=== PATIENT | male | born 1950 | race Caucasian/White ===

== ENCOUNTER 2016-09-21 11:05 | Emergency (ER) | payer MEDICARE ==
[~2016-09-21] VITALS: Ht 182.9 cm; Wt 92.8 kg
[~2016-09-21 11:05] MED LIST: AMLO5TAB22 PO; COUM6TAB PO; MAXZ25 PO; METH500T3 PO
[2016-09-21 11:16] VITALS: BP 150/91; PULSE 73; RESP 16; TEMP 99.2; O2SAT 96
[2016-09-21] MEDS ORDERED: LISI-519 PO (11:38)
[2016-09-21] MEDS ORDERED: AMLO5TAB2 PO (11:38)
[2016-09-21] MEDS ORDERED: KETOROLAC TROMETHAMINE 60 MG/2 ML (IM) VIAL IM ONE (11:45)
--- NOTE | 2016-09-21 11:50 | PD ---
HPI Chief Complaint: Back/ Neck Pain or Injury Time Seen by Provider: 11:41 Travel History International Travel<30 days: No Contact w/Intl Traveler<30days: No Traveled to known affect area: No History of Present Illness HPI This patient complains of back pain. Located in his right lower back. He's had flares of this in the past. He says he recently started a job and is doing a lot of standing for hours and that is aggravating his back. No injury or fall. Denies fever or neurologic complaint. No incontinence or retention. He said flares like this before. No sciatic radiation. He is to take a lot of medication including morphine but managed to get off all of that stuff in 2010 and does not want any prescriptions. PFSH Past Medical History Diminished Hearing: No Deep Vein Thrombosis: Yes Hypertension: Yes Musculoskeletal: Yes (CHRONIC NECK AND BACK PAIN) Immunizations Current: Yes Past Surgical History Appendectomy: Yes Other Surgery: Yes (NECK SX.) Social History Alcohol Use: Yes (SOC) Tobacco Use: No (NEVER) Substance Use: No Allergies-Medications (Allergen,Severity, Reaction): Coded Allergies: Vicodin (Verified Adverse Reaction, Severe, VOMITING, 09/21/16) Codeine (Verified Adverse Reaction, Unknown, VOMITING, 09/21/16) Reported Meds & Prescriptions Reported Meds & Active Scripts Active Reported Lisinopril 5 Mg Tab Unknown Dose PO DAILY Amlodipine (Amlodipine Besylate) 5 Mg Tab 5 Mg PO DAILY Review of Systems General / Constitutional: No: Fever HENT: No: Headaches Cardiovascular: No: Chest Pain or Discomfort Physical Exam Narrative GASTROINTESTINAL: Abdomen soft, non-tender, nondistended. Positive bowel sounds. No hepato-splenomegaly, or palpable masses. No guarding. NEUROLOGICAL: Awake and alert. Pupils are equal round and reactive. Motor and sensory grossly within normal limits. Five out of 5 muscle strength in all muscle groups. Normal speech. Back: No midline tenderness Data Data Last Documented VS Vital Signs Date Time Temp Pulse Resp B/P Pulse Ox O2 Delivery O2 Flow Rate FiO2 09/21/16 11:16 99.2 73 16 150/91 96 Orders Ketorolac Inj (Toradol Inj) (09/21/16 11:45) [facility] Medical Decision Making Medical Screen Exam Complete: Yes Emergency Medical Condition: Yes Medical Record Reviewed: Yes Differential Diagnosis Back strain, sciatica, pyelonephritis Narrative Course I have reviewed the patient's electronic medical record. Patient is neurologically intact. No red flags to suggest emergent imaging is indicated. He would like Toradol injection but no other medication or prescriptions. Does not want anything addictive. The patient was advised to follow up with their physician and return if they worsen. Diagnosis Primary Impression: Back pain Qualified Code: M54.5 - Acute left-sided low back pain without sciatica Additional Instructions: The patient was advised to follow up with their physician and return if they worsen. Med/Other Pt SpecificInfo: Other Disposition: 01 DISCHARGE HOME Condition: Stable Rene Randolph MD Sep 21, 2016 11:50
== END 2016-09-21 11:57 | disposition home or self-care (01) ==
LOC: PHEFT 11:05
DX: M54.9 Dorsalgia, unspecified (principal)
CPT/HCPCS: 96372; 99283; J1885

== ENCOUNTER 2016-11-17 18:02 | Emergency (ER) | payer MEDICARE ==
[~2016-11-17] VITALS: Ht 182.9 cm; Wt 92.0 kg
[~2016-11-17 18:02] MED LIST changes: +AMLO5TAB2 PO; -AMLO5TAB22 PO; -COUM6TAB PO; +LISI-519 PO; -MAXZ25 PO; -METH500T3 PO
[2016-11-17 18:07] VITALS: BP 168/93; PULSE 57; RESP 16; TEMP 98; O2SAT 96
--- NOTE | 2016-11-17 19:29 | PD ---
HPI Chief Complaint: Musculoskeletal Complaint Time Seen by Provider: 19:29 Travel History International Travel<30 days: No Contact w/Intl Traveler<30days: No Traveled to known affect area: No History of Present Illness HPI 66 year old male presents to the ED for evaluation of 3 day history of left- sided rib pain. Rated 9 out of 10 maximally, Exacerbated by certain movements. Patient states the pain as sharp, momentary, fades to a dull pain. Patient denies known injury to the area, chest pain, palpitations, diaphoresis, shortness of breath, abdominal pain, nausea, vomiting, dysuria, back pain. He endorses drinking 3-4 beers 2-3 times per week. He denies smoking. He denies cardiac history. He does endorse history of MT in his brother. No treatment attempted at home. PFSH Past Medical History Diminished Hearing: No Deep Vein Thrombosis: Yes Hypertension: Yes Musculoskeletal: Yes (CHRONIC NECK AND BACK PAIN) Immunizations Current: Yes Tetanus Vaccination: < 5 Years Influenza Vaccination: Yes Past Surgical History Appendectomy: Yes Other Surgery: Yes (NECK SX.) Social History Alcohol Use: Yes (SOC) Tobacco Use: No (NEVER) Substance Use: No Allergies-Medications (Allergen,Severity, Reaction): Coded Allergies: Vicodin (Verified Adverse Reaction, Severe, VOMITING, 11/17/16) Codeine (Verified Adverse Reaction, Unknown, VOMITING, 11/17/16) Reported Meds & Prescriptions Reported Meds & Active Scripts Active Reported Lisinopril 5 Mg Tab Unknown Dose PO DAILY Amlodipine (Amlodipine Besylate) 5 Mg Tab 5 Mg PO DAILY Review of Systems Except as stated in HPI: all other systems reviewed are Neg Physical Exam Narrative GENERAL: Well-nourished, well-developed nontoxic appearing white male in no acute distress. SKIN: Warm and dry. HEAD: Normocephalic. EYES: No scleral icterus. No injection or drainage. NECK: Supple, trachea midline. No JVD or lymphadenopathy. CARDIOVASCULAR: Regular rate and rhythm without murmurs, gallops, or rubs. 2+ DP and radial pulses bilaterally. PRECORDIUM: There is a faint ecchymosis on the lateral edge of the left anterior rib cage. Pain is reproducible. Point tenderness to palpation. RESPIRATORY: Breath sounds clear and equal bilaterally. No accessory muscle use. GASTROINTESTINAL: Abdomen soft, non-tender, nondistended. Active bowel sounds. MUSCULOSKELETAL: No cyanosis, or edema. BACK: Nontender without obvious deformity. No CVA tenderness. Data Data Last Documented VS Vital Signs Date Time Temp Pulse Resp B/P Pulse Ox O2 Delivery O2 Flow Rate FiO2 11/17/16 18:07 98.0 57 16 168/93 96 Orders Chest, Single Ap (11/17/16 ) Electrocardiogram (11/17/16 19:42) Ketorolac Inj (Toradol Inj) (11/17/16 20:45) MDM Medical Decision Making Medical Screen Exam Complete: Yes Emergency Medical Condition: Yes Differential Diagnosis Musculoskeletal pain versus muscle spasm versus rib fracture versus pneumonia versus pneumothorax versus pancreatitis versus ACS versus other Narrative Course 66 year old male presents to the ED for evaluation of 3 day history of left- sided rib pain. Described as sharp, rated 9/10 maximally, exacerbated by certain movements. Occurs momentarily and fades to a dull pain. Patient denies known injury to the area, chest pain, palpitations, diaphoresis, shortness of breath, abdominal pain, nausea, vomiting, dysuria, back pain. Vitals reviewed. Physical exam reveals a well appearing white male in no acute distress. Physical exam reveals a faint ecchymosis and reproducible TTP of the lateral edge of the LEFT ribcage. EKG rate 55, sinus rhythm. Normal intervals. Normal axis. No ischemic changes. Reviewed by Dr. Reich. Chest x-ray reveals no acute cardio pulmonary disease per radiology read. This is musculoskeletal pain. Patient was administered IM Toradol. He is prescribed a short course of anti-inflammatories and muscle relaxants. Instructed to take the medication as prescribed, avoid driving while taking Flexeril, follow-up with the primary care provider. He indicated understanding of the instructions and is amenable to plan of care. This patient is stable and discharged home. Diagnosis Primary Impression: Rib pain on left side Referrals: Primary Care Physician Patient Instructions: General Instructions, Musculoskeletal Pain (ED) Additional Instructions: Rest, hydrate. Resume normal, gentle activities as tolerated. No strenuous physical activities for the next few days 800mg ibuprofen up to 3 times a day. BEGIN TOMORROW Flexeril up to 3 times a day as needed for muscle spasm. Applying ice or heat to areas with sore muscles may help to improve your pain. Do not apply ice/ heat for longer than 20 m/h. Gentle massage of the area may also help to improve your pain. Follow-up with your primary care provider this week. Return to the ED for any urgent or emergent medical condition. Med/Other Pt SpecificInfo: Prescription(s) given Disposition: 01 DISCHARGE HOME Condition: Stable Olivia Bates Nov 17, 2016 19:29
--- NOTE | 2016-11-17 20:24 | RADHPO ---
EXAM DATE/TIME: 11/17/2016 19:50 [facility] COMPARISON: No previous studies available for comparison. INDICATIONS : left lower chest pain for two days with no known injury MEDICAL HISTORY : None. SURGICAL HISTORY : None. ENCOUNTER: Initial ACUITY: 2 days PAIN SCORE: 10/10 LOCATION: Left lower chest FINDINGS: A single view of the chest demonstrates the lungs to be symmetrically aerated without evidence of mas s, infiltrate or effusion. The cardiomediastinal contours are unremarkable. Osseous structures are intact. CONCLUSION: No acute disease. Kaiser Sanchez MD on November 17, 2016 at 20:23 Board Certified Radiologist. This report was verified electronically.
[2016-11-17] MEDS ORDERED: KETOROLAC TROMETHAMINE 60 MG/2 ML (IM) VIAL IM ONE (20:45)
--- NOTE | 2016-11-18 13:56 | EKG ---
Date Performed: 11/17/2016 Time Performed: 19:56:16 PTAGE: 66 years EKG: Sinus bradycardia. Normal ECG except for rate NO PREVIOUS TRACING DOCTOR: Jarvis Hobson Interpretating Date/Time 11/18/2016 13:52:01
== END 2016-11-17 20:46 | disposition home or self-care (01) ==
LOC: PHED 18:02 → PHEFT 20:46
DX: R07.81 Pleurodynia (principal); I10 Essential (primary) hypertension
CPT/HCPCS: 71010; 93005; 96372; 99283; J1885

== ENCOUNTER 2017-02-09 22:56 | Emergency (ER) | payer MEDICARE, OTHER ==
[~2017-02-09] VITALS: Ht 175.3 cm; Wt 80.0 kg
[2017-02-09 23:25] VITALS: BP 124/67; PULSE 72; RESP 18; TEMP 98.7; O2SAT 97
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
[2017-02-10 00:53] LABS: AUTOMATED NEUTROPHIL # 4.9 TH/MM3 (1.8-7.7); BASOPHIL % 0.4 % (0.0-2.0); EOSINOPHIL % 0.5 % (0.0-4.0); HEMATOCRIT 46.5 % (39.0-51.0); HEMO FLAGS DIFF FINAL; LYMPH % 25.2 % (9.0-44.0); LYMPHOCYTE # 1.8 TH/MM3 (1.0-4.8); MEAN CELL VOLUME 94.1 FL (80.0-100.0); MEAN CORPUSCULAR HEMOGLOBIN 33.1 PG (27.0-34.0); MEAN CORPUSCULAR HGB CONC 35.2 % (32.0-36.0); MONO % 6.8 % (0.0-8.0); NEUT % 67.1 % (16.0-70.0); PLATELET COUNT 161 TH/MM3 (150-450); RED BLOOD COUNT 4.94 MIL/MM3 (4.50-5.90); RED CELL DISTRIBUTION WIDTH 13.5 % (11.6-17.2); WHITE BLOOD COUNT 7.3 TH/MM3 (4.0-11.0)
[2017-02-10 01:10] LABS: AMPHETAMINE, URINE NEG (NEG); BARBITURATES, URINE NEG (NEG); COCAINE, URINE NEG (NEG)
[2017-02-10 01:15] LABS: ACETAMINOPHEN LESS THAN 2.0 MCG/ML (10.0-30.0); ALKALINE PHOSPHATASE 75 U/L (45-117); ALT (GPT) 27 U/L (12-78); TOTAL BILIRUBIN ADULT 0.3 MG/DL (0.2-1.0)
[2017-02-10 01:26] LABS: ANION GAP 9 MEQ/L (5-15); AST (GOT) 26 U/L (15-37); BICARBONATE 28.9 MEQ/L (21.0-32.0); BLOOD UREA NITROGEN 13 MG/DL (7-18); CHLORIDE 104 MEQ/L (98-107); GLOMERULAR FILTRATION RATE 89 ML/MIN (>89); POTASSIUM 3.9 MEQ/L (3.5-5.1); SODIUM (NA) 142 MEQ/L (136-145)
[2017-02-10 09:08] VITALS: BP 160/89; PULSE 67; RESP 16; O2SAT 98
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
== END 2017-02-10 15:18 | disposition home or self-care (01) ==
LOC: NEDAMB 22:56 → NEPJ 02-10 15:18
DX: F10.14 Alcohol abuse with alcohol-induced mood disorder (principal); R45.851 Suicidal ideations; F10.129 Alcohol abuse with intoxication, unspecified; X78.1XXA Intentional self-harm by knife, initial encounter; I10 Essential (primary) hypertension
CPT/HCPCS: 80053; 80307; 85025; 99284

== ENCOUNTER 2017-07-21 17:04 | Emergency (ER) | payer MEDICARE, OTHER ==
[~2017-07-21] VITALS: Ht 182.9 cm; Wt 86.0 kg
[2017-07-21 17:14] VITALS: BP 113/64; PULSE 81; RESP 20; TEMP 100.5; O2SAT 91
[2017-07-21] MEDS ORDERED: SODIUM CHLORIDE 0.9% FLUSH 10 ML FLUSH IVF PRN (17:30)
[2017-07-21] MEDS ORDERED: RESP: ALBUTEROL 2.5 MG/IPRATROPIUM 0.5 MG NEB (SCH) NEB ONE (17:30)
[2017-07-21] MEDS ORDERED: ACETAMINOPHEN 325 MG TAB PO ONE (17:30)
[2017-07-21 17:31] VITALS: RESP 20; O2SAT 95
--- NOTE | 2017-07-21 17:34 | PD ---
HPI Chief Complaint: Cold / Flu Symptoms Time Seen by Provider: 17:23 Travel History International Travel<30 days: No Contact w/Intl Traveler<30days: No Traveled to known affect area: No History of Present Illness HPI This patient complains of cough and congestion and fever. Duration 3 days. Severity is moderate. He has no history of lung disease and never smoked. Denies ill contacts. No alleviating factors. No exacerbating factors. He is not having chest pain. PFSH Past Medical History Diabetes: No Diminished Hearing: No Deep Vein Thrombosis: Yes Hypertension: Yes Musculoskeletal: Yes (CHRONIC NECK AND BACK PAIN) Psychiatric: No (PT DENIES PAST AND CURRENT HISTORY) Immunizations Current: Yes Past Surgical History Appendectomy: Yes Other Surgery: Yes (NECK SX.) Social History Alcohol Use: Yes (Deneis that he drinks every day. ) Tobacco Use: No (NEVER) Substance Use: No (ALCOHOL OCC) Allergies-Medications (Allergen,Severity, Reaction): Coded Allergies: acetaminophen (Unverified Adverse Reaction, Severe, VOMITING, 07/21/17) hydrocodone (Unverified Adverse Reaction, Severe, VOMITING, 07/21/17) codeine (Unverified Adverse Reaction, Unknown, VOMITING, 07/21/17) Reported Meds & Prescriptions Reported Meds & Active Scripts Active Zithromax Z-Josr (Azithromycin) 250 Mg Dspk 250 Mg PO DIRECTED 500 MG (2 tabs) day 1, then 1 tab days 2-5. Ventolin Hfa 18 GM Inh (Albuterol Sulfate) 90 Mcg/Act Aer 1 Puff INH Q4H PRN Reported Lisinopril 5 Mg Tab Unknown Dose PO DAILY Amlodipine (Amlodipine Besylate) 5 Mg Tab 5 Mg PO DAILY Review of Systems General / Constitutional: Positive: Fever Eyes: No: Visual changes HENT: Positive: Congestion, No: Headaches Cardiovascular: No: Chest Pain or Discomfort Respiratory: Positive: Cough, No: Shortness of Breath Gastrointestinal: No: Abdominal Pain Genitourinary: No: Dysuria Musculoskeletal: No: Pain Skin: No Rash Neurologic: No: Weakness Psychiatric: No: Depression Endocrine: No: Polydipsia Hematologic/Lymphatic: No: Easy Bruising Physical Exam Narrative GENERAL: Well-nourished, well-developed patient in no apparent distress. SKIN: Focused skin assessment reveals no rash and nodules. Skin is Warm and dry. HEAD: Atraumatic. Normocephalic. EYES: Pupils equal and round. No scleral icterus. No injection or drainage. ENT: No nasal bleeding or discharge. Mucous membranes pink and moist. Throat clear NECK: Trachea midline. No JVD. No meningeal signs CARDIOVASCULAR: Regular rate and rhythm. No murmur appreciated. RESPIRATORY: No accessory muscle use. Clear to auscultation. Breath sounds equal bilaterally. GASTROINTESTINAL: Abdomen soft, non-tender, nondistended. Hepatic and splenic margins not palpable. MUSCULOSKELETAL: No obvious deformities. No clubbing. No cyanosis. No edema. NEUROLOGICAL: Awake and alert. No obvious cranial nerve deficits. Motor grossly within normal limits. Normal speech. PSYCHIATRIC: Appropriate mood and affect; insight and judgment normal. Data Data Last Documented VS Vital Signs Date Time Temp Pulse Resp B/P (MAP) Pulse Ox O2 Delivery O2 Flow Rate FiO2 07/21/17 18:50 99.3 79 20 91 Nasal Cannula 2.00 07/21/17 17:14 113/64 (80) Orders Orders Complete Blood Count With Diff (07/21/17 17:28) Basic Metabolic Panel (Bmp) (07/21/17 17:28) Influenzae A/B Antigen (07/21/17 17:28) Chest, Single Ap (07/21/17 17:28) Oximetry (07/21/17 17:28) Acetaminophen (Tylenol) (07/21/17 17:30) Sodium Chloride 0.9% Flush (Ns Flush) (07/21/17 17:30) Albuterol-Ipratropium Neb (Duoneb Neb) (07/21/17 17:30) Arterial Blood Gas (Abg) (07/21/17 ) Labs Laboratory Tests Test 07/21/17 17:30 07/21/17 19:00 White Blood Count 12.6 TH/MM3 Red Blood Count 5.63 MIL/MM3 Hemoglobin 17.4 GM/DL Hematocrit 51.6 % Mean Corpuscular Volume 91.7 FL Mean Corpuscular Hemoglobin 31.0 PG Mean Corpuscular Hemoglobin Concent 33.8 % Red Cell Distribution Width 13.0 % Platelet Count 160 TH/MM3 Mean Platelet Volume 8.1 FL Neutrophils (%) (Auto) 84.0 % Lymphocytes (%) (Auto) 6.3 % Monocytes (%) (Auto) 7.0 % Eosinophils (%) (Auto) 0.2 % Basophils (%) (Auto) 2.5 % Neutrophils # (Auto) 10.6 TH/MM3 Lymphocytes # (Auto) 0.8 TH/MM3 Monocytes # (Auto) 0.9 TH/MM3 Eosinophils # (Auto) 0.0 TH/MM3 Basophils # (Auto) 0.3 TH/MM3 CBC Comment DIFF FINAL Differential Comment Blood Urea Nitrogen 22 MG/DL Creatinine 1.10 MG/DL Random Glucose 103 MG/DL Calcium Level 8.9 MG/DL Sodium Level 133 MEQ/L Potassium Level 4.0 MEQ/L Chloride Level 99 MEQ/L Carbon Dioxide Level 26.5 MEQ/L Anion Gap 8 MEQ/L Estimat Glomerular Filtration Rate 67 ML/MIN Blood Gas Puncture Site LT RADIAL Blood Gas Patient Temperature 98.6 Blood Gas HCO3 26 mmol/L Blood Gas Base Excess 2.4 mmol/L Blood Gas Oxygen Saturation 92 % Arterial Blood pH 7.48 Arterial Blood Partial Pressure CO2 35 mmHG Arterial Blood Partial Pressure O2 72 mmHG Arterial Blood Oxygen Content 22.3 Vol % Arterial Blood Carboxyhemoglobin 1.8 % Arterial Blood Methemoglobin 1.1 % Blood Gas Hemoglobin 17.2 G/DL Oxygen Delivery Device ROOM AIR Blood Gas Inspired Oxygen 21 % MDM Medical Decision Making Medical Screen Exam Complete: Yes Emergency Medical Condition: Yes Medical Record Reviewed: Yes Differential Diagnosis Pneumonia, bronchitis, influenza Narrative Course I have reviewed the patient's electronic medical record. Patient's been here before for alcohol intoxication as well as back pain IV placed CBC is normal metabolic profile is normal I reviewed his chest x-ray which is normal Influenza swab is negative I gave him a nebulizer treatment Given Tylenol for fever Presentation is consistent with acute respiratory infection. It may be viral. His chest x-rays negative. Room air ABG shows PO2 of 72 He is not hypoxemic. He feels he can do okay at home. I prescribed him an albuterol inhaler to use as needed as well as a course of Zithromax This may be viral I don't have significant clinical suspicion of PE. He's got a prominent hacking cough and fever suggesting infectious etiology. He does not have chest pain or tachycardia. We discussed hospitalization but he thinks he will do well at home. I advised him to return if he worsens in any way and he agrees. Diagnosis Primary Impression: Bronchopneumonia Additional Instructions: The patient was advised to follow up with their physician and return if they worsen. Med/Other Pt SpecificInfo: Prescription(s) given Scripts Azithromycin (Zithromax Z-Josr) 250 Mg Dspk 250 MG PO DIRECTED for Infection, #1 DSPK 0 Refills 500 MG (2 tabs) day 1, then 1 tab days 2-5. Prov: Rene Randolph MD 07/21/17 Albuterol 18 GM Inh (Ventolin Hfa 18 GM Inh) 90 Mcg/Act Aer 1 PUFF INH Q4H Y for SHORTNESS OF BREATH, #1 INHALER 0 Refills Prov: Rene Randolph MD 07/21/17 Disposition: 01 DISCHARGE HOME Condition: Stable Rene Randolph MD Jul 21, 2017 17:34
[2017-07-21 17:53] LABS: BICARBONATE 26.5 MEQ/L (21.0-32.0)
[2017-07-21 18:09] LABS: AUTOMATED NEUTROPHIL # 10.6 TH/MM3 (1.8-7.7); BASOPHIL # 0.3 TH/MM3 (0-0.2); BASOPHIL % 2.5 % (0.0-2.0); EOSINOPHIL % 0.2 % (0.0-4.0); HEMATOCRIT 51.6 % (39.0-51.0); LYMPH % 6.3 % (9.0-44.0); LYMPHOCYTE # 0.8 TH/MM3 (1.0-4.8); MEAN CELL VOLUME 91.7 FL (80.0-100.0); MEAN CORPUSCULAR HGB CONC 33.8 % (32.0-36.0); PLATELET COUNT 160 TH/MM3 (150-450); RED BLOOD COUNT 5.63 MIL/MM3 (4.50-5.90); WHITE BLOOD COUNT 12.6 TH/MM3 (4.0-11.0)
[2017-07-21 18:35] LABS: HEMO FLAGS DIFF FINAL
--- NOTE | 2017-07-21 18:41 | RADRPT ---
EXAM DATE/TIME: 07/21/2017 17:50 [facility] COMPARISON: CHEST SINGLE AP, November 17, 2016, 19:50. INDICATIONS : Cough, shortness of breath, and congestion. MEDICAL HISTORY : None. SURGICAL HISTORY : None. ENCOUNTER: Initial ACUITY: 1 week PAIN SCORE: 5/10 LOCATION: Bilateral chest FINDINGS: A single view of the chest demonstrates the lungs to be symmetrically aerated without evidence of mas s, infiltrate or effusion. The cardiomediastinal contours are unremarkable. Surgical hardware is see n in the cervical spine. CONCLUSION: No acute disease. Rivas Kennedy MD on July 21, 2017 at 18:40 Board Certified Radiologist. This report was verified electronically.
[2017-07-21 18:50] VITALS: PULSE 79; RESP 20; TEMP 99.3; O2SAT 91
[2017-07-21 19:11] LABS: BLOOD GAS BASE EXCESS 2.4 mmol/L (-2-2); BLOOD GAS CARBOXYHEMOGLOBIN 1.8 % (0-4); BLOOD GAS HCO3 26 mmol/L (22-26); BLOOD GAS METHEMOGLOBIN 1.1 % (0-2); BLOOD GAS O2 HGB SATURATION 92 % (90-100); BLOOD GAS OXYGEN CONTENT 22.3 Vol % (12.0-20.0); BLOOD GAS PCO2 35 mmHG (38-42); BLOOD GAS PO2 72 mmHG (61-120); BLOOD GAS TOTAL HGB 17.2 G/DL (12.0-16.0); CRITICAL VALUE NO; DRAW SITE LT RADIAL; FIO2 21 %; NUMBER OF ARTERIAL PUNCTURES 1; OXYGEN DEVICE ROOM AIR; STAT YES; TEMP CORR TO 98.6; ULNAR PULSE PRESENT
[2017-07-21] MEDS ORDERED: VENTAER INH (19:25)
[2017-07-21] MEDS ORDERED: ZITHTAB PO (19:25)
[2017-07-21 19:44] VITALS: BP 118/68; PULSE 76; RESP 18; O2SAT 96
== END 2017-07-21 19:56 | disposition home or self-care (01) ==
LOC: PHED 17:04
DX: J18.0 Bronchopneumonia, unspecified organism (principal); R50.9 Fever, unspecified; I10 Essential (primary) hypertension; Z86.718 Personal history of other venous thrombosis and embolism; Z87.39 Personal history of other diseases of the musculoskeletal system and connective tissue
CPT/HCPCS: 36600; 71010; 80048; 82805; 85025; 87804; 94664; 99284

== ENCOUNTER 2018-07-31 16:09 | Inpatient (IN) ==
[2018-07-31] MEDS ORDERED: Ketorolac Inj 30 MG/ML (IVP) Vial IV.PUSH ONE (16:32)
--- NOTE | 2018-07-31 16:42 | ED ---
HPI General Chief complaint: Respiratory Symptoms Stated complaint: SOB Time Seen by Provider: 07/31/18 16:16 Source: patient Mode of arrival: ambulatory Limitations: no limitations History of Present Illness HPI narrative: Patient presents with new onset of pain to right posterior thorax that is increasing in severity over the last week. Due to this patient has not been working and has significant pain with deep inspiration or movement. Patient has shortness of breath just because of pain and discomfort impairs proper respiration. Patient takes minimal analgesics and no narcotics. Patient has intermittent pain to his left calf with intermittent spasm in that area. No swelling or edema. No episodes of shortness of breath acute in nature Related Data Home Medications Medication Instructions Recorded Confirmed atenolol 25 mg PO DAILY 04/09/18 07/31/18 lisinopril-hydrochlorothiazide 1 tab PO DAILY 04/09/18 07/31/18 Allergies Allergy/AdvReac Type Severity Reaction Status Date / Time hydrocodone AdvReac Severe VOMITING Verified 07/31/18 16:21 codeine AdvReac Unknown VOMITING Verified 07/31/18 16:21 Review of Systems ROS: all other systems reviewed are negative [facility] Medical History Medical History Cervical vertebral fusion (Acute) Hypertension (Acute) Surgical History Surgical History History of appendectomy (Acute) Social History Social History Substance History: No History of Abuse Second Hand Smoke Exposure: No Smoking Status: Never smoker How Often Do You Have a Drink Containing Alcohol: 2 to 4 times a month Recent Travel in [facility] within the Last 8 Weeks: No Recent Out of Country Travel within the Last 8 Weeks: No Immunization History Tetanus Immunization: Unsure Exam Narrative Exam Narrative: GENERAL: Alert and oriented. Pain right posterior thorax with deep inspiration SKIN: Focused skin assessment warm/dry. HEAD: Atraumatic. Normocephalic. EYES: Pupils equal and round. No scleral icterus. No injection or drainage. ENT: No nasal bleeding or discharge. Mucous membranes pink and moist. NECK: Trachea midline. No JVD. CARDIOVASCULAR: Regular rate and rhythm. No murmur appreciated. RESPIRATORY: No accessory muscle use. Clear to auscultation. Breath sounds equal bilaterally. Chest wall: Patient has well localized tenderness to posterior thorax posterior axillary line at 7 rib area. GASTROINTESTINAL: Abdomen soft, non-tender, nondistended. Hepatic and splenic margins not palpable. MUSCULOSKELETAL: No obvious deformities. No clubbing. No cyanosis. No edema. NEUROLOGICAL: Awake and alert. No obvious cranial nerve deficits. Motor grossly within normal limits. Normal speech. No swelling or edema but tenderness to left calf however no Homans. PSYCHIATRIC: Appropriate mood and affect; insight and judgment normal. Course Reevaluation(s) Reevaluation #1: Patient stable with no increased symptomatology. Patient has reduced pain and discomfort with analgesic. No significant respiratory distress. Patient has normal pulse ox and is stable and is being placed on anticoagulants. Time: 23:40 Initial Documented Vital Signs Temperature 99.9 F H 07/31/18 16:18 Pulse Rate 88 07/31/18 16:18 Respiratory Rate 20 07/31/18 16:18 Blood Pressure 152/70 H 07/31/18 16:18 Pulse Oximetry 98 07/31/18 16:18 Last Documented Vital Signs Temperature 99.9 F H 07/31/18 16:18 Pulse Rate 72 07/31/18 20:25 Respiratory Rate 16 07/31/18 20:25 Blood Pressure 140/66 07/31/18 20:25 Pulse Oximetry 98 07/31/18 20:27 Critical Care Time Critical Care Time: Yes Total Critical Care Time: 70 Attestation: Not applicable Medical Decision Making MDM Narrative Medical decision making narrative: Patient presents with chest wall pain however on further evaluation he was found to have pulmonary embolism with nidus from the left calf. Patient placed on anticoagulants and patient admitted to Dr. Ackerman Medical Screen Exam Complete: Yes Emergency Medical Condition: Yes Lab Data Result diagrams: 07/31/18 17:06 07/31/18 17:06 Lab Results 07/31/18 07/31/18 07/31/18 Range/Units 17:06 17:06 17:06 CBC w Diff Auto diff final WBC 13.6 H (4.0-11.0) th/mm3 RBC 4.91 (4.50-5.90) mil/mm3 Hgb 15.5 (13.0-17.0) gm/dL Hct 46.0 (39.0-51.0) % MCV 93.6 (80.0-100.0) fL MCH 31.6 (27.0-34.0) pg MCHC 33.8 (32.0-36.0) % RDW 12.7 (11.6-17.2) % Plt Count 180 (150-450) th/mm3 MPV 7.4 (7.0-11.0) fL Neut % (Auto) 78.9 H (16.0-70.0) % Lymph % (Auto) 10.0 (9.0-44.0) % Davis % (Auto) 6.7 (0.0-8.0) % Eos % (Auto) 0.2 (0.0-4.0) % Baso % (Auto) 4.2 H (0.0-2.0) % Neut # (Auto) 10.7 H (1.8-7.7) th/mm3 Lymph # (Auto) 1.4 (1.0-4.8) th/mm3 Davis # (Auto) 0.9 (0.0-0.9) th/mm3 Eos # (Auto) 0.0 (0.0-0.4) th/mm3 Baso # (Auto) 0.6 H (0.0-0.2) th/mm3 WBC Differential . Differential Comment . PT (9.8-11.6) sec INR Ratio APTT (23.4-31.7) sec D-Dimer Quant (PE/DVT) 4.91 H (0.00-0.50) mg/L FEU Sodium 135 L (136-145) meq/L Potassium 4.2 (3.5-5.1) meq/L Chloride 99 (98-107) meq/L Carbon Dioxide 28.0 (21.0-32.0) meq/L Anion Gap 8 (5-15) meq/L BUN 10 (7-18) mg/dL Creatinine 0.90 (0.60-1.30) mg/dL Estimated GFR 84 L (>89) mL/min Random Glucose 97 (74-106) mg/dL Calcium 8.6 (8.5-10.1) mg/dL Total Bilirubin 0.9 (0.2-1.0) mg/dL AST 20 (15-37) U/L ALT 22 (12-78) U/L Alkaline Phosphatase 79 (45-117) U/L Troponin I Less than 0.02 L (0.02-0.05) ng/mL Total Protein 7.4 (6.4-8.2) g/dL Albumin 3.6 (3.4-5.0) g/dL 07/31/18 07/31/18 Range/Units 17:06 20:17 CBC w Diff WBC (4.0-11.0) th/mm3 RBC (4.50-5.90) mil/mm3 Hgb (13.0-17.0) gm/dL Hct (39.0-51.0) % MCV (80.0-100.0) fL MCH (27.0-34.0) pg MCHC (32.0-36.0) % RDW (11.6-17.2) % Plt Count (150-450) th/mm3 MPV (7.0-11.0) fL Neut % (Auto) (16.0-70.0) % Lymph % (Auto) (9.0-44.0) % Davis % (Auto) (0.0-8.0) % Eos % (Auto) (0.0-4.0) % Baso % (Auto) (0.0-2.0) % Neut # (Auto) (1.8-7.7) th/mm3 Lymph # (Auto) (1.0-4.8) th/mm3 Davis # (Auto) (0.0-0.9) th/mm3 Eos # (Auto) (0.0-0.4) th/mm3 Baso # (Auto) (0.0-0.2) th/mm3 WBC Differential Differential Comment PT 9.6 L (9.8-11.6) sec INR 0.9 Ratio APTT 27.5 (23.4-31.7) sec D-Dimer Quant (PE/DVT) (0.00-0.50) mg/L FEU Sodium (136-145) meq/L Potassium (3.5-5.1) meq/L Chloride (98-107) meq/L Carbon Dioxide (21.0-32.0) meq/L Anion Gap (5-15) meq/L BUN (7-18) mg/dL Creatinine (0.60-1.30) mg/dL Estimated GFR (>89) mL/min Random Glucose (74-106) mg/dL Calcium (8.5-10.1) mg/dL Total Bilirubin (0.2-1.0) mg/dL AST (15-37) U/L ALT (12-78) U/L Alkaline Phosphatase (45-117) U/L Troponin I Less than 0.02 L (0.02-0.05) ng/mL Total Protein (6.4-8.2) g/dL Albumin (3.4-5.0) g/dL Imaging Data Radiologist's impression: Ribs X-Ray 07/31/18 16:32 CONCLUSION: Negative rib series. No evidence of pneumothorax. Venous Doppler Study 07/31/18 19:56 CONCLUSION: 1. The study is negative for upper extremity deep venous thrombosis. Chest CTA 07/31/18 19:58 CONCLUSION: 1. Bilateral lower lobe pulmonary emboli. Discharge Plan Discharge Disposition Patient Disposition: 30 Still Patient Discharge Condition Condition: Stable Discharge Details Diagnosis: Thrombophlebitis leg, Pulmonary emboli Physicians Team ED Provider: Desmond Carrillo Primary Care Provider: Lisa Rand Rxs /Orders / Referrals /Forms Prescriptions: No Action atenolol 25 mg Tablet 25 mg PO DAILY RF: 0 lisinopril-hydrochlorothiazide 10-12.5 mg Tablet 1 tab PO DAILY RF: 0 Status ED Status: With Doctor
--- NOTE | 2018-07-31 17:07 | XR ---
EXAM DATE: 07/31/2018 4:59 PM EST AGE/SEX: 68 years / Male INDICATIONS: Right posterior chest pain for 1 week, no known trauma. CLINICAL DATA: This is the patient's initial encounter. Patient reports that signs and symptoms have been present for 1 week and indicates a pain score of 8/10. MEDICAL/SURGICAL HISTORY: None. None. COMPARISON: [facility], CHEST SINGLE AP, 07/21/2017. . FINDINGS: There is no evidence of displaced fracture. No destructive lesions or areas of periosteal thickening are seen. Expiratory view of the chest is negative for pneumothorax. The mediastinal structures ar e midline. CONCLUSION: Negative rib series. No evidence of pneumothorax. Electronically signed by: Rivas Guerra MD 07/31/2018 5:06 PM EST
[2018-07-31 17:14] LABS: Baso # (Auto) 0.6 th/mm3 (0.0-0.2); Baso % (Auto) 4.2 % (0.0-2.0); Eos % (Auto) 0.2 % (0.0-4.0); Hemoglobin 15.5 gm/dL (13.0-17.0); Lymph # (Auto) 1.4 th/mm3 (1.0-4.8); Mean Corpuscular HGB Conc 33.8 % (32.0-36.0); Mean Corpuscular Hemoglobin 31.6 pg (27.0-34.0); Mean Corpuscular Volume 93.6 fL (80.0-100.0); Mean Platelet Volume 7.4 fL (7.0-11.0); Mono # (Auto) 0.9 th/mm3 (0.0-0.9); Mono % (Auto) 6.7 % (0.0-8.0); Neut # (Auto) 10.7 th/mm3 (1.8-7.7); Neut % (Auto) 78.9 % (16.0-70.0); Platelet Count 180 th/mm3 (150-450); Red Blood Count 4.91 mil/mm3 (4.50-5.90); Red Cell Distribution Width 12.7 % (11.6-17.2); White Blood Count 13.6 th/mm3 (4.0-11.0)
[2018-07-31 17:26] LABS: Chloride 99 meq/L (98-107); Potassium 4.2 meq/L (3.5-5.1); Sodium 135 meq/L (136-145)
[2018-07-31 17:30] LABS: Albumin 3.6 g/dL (3.4-5.0); Anion Gap 8 meq/L (5-15); Blood Urea Nitrogen 10 mg/dL (7-18); Calcium 8.6 mg/dL (8.5-10.1); Glucose,Random 97 mg/dL (74-106)
[2018-07-31 17:33] LABS: Alanine Aminotransferase 22 U/L (12-78); Aspartate Aminotransferase 20 U/L (15-37); Glomerular Filtration Rate 84 mL/min (>89)
[2018-07-31 17:35] LABS: Total Protein 7.4 g/dL (6.4-8.2)
[2018-07-31 17:36] LABS: Alkaline Phosphatase 79 U/L (45-117)
[2018-07-31 20:27] LABS: Activated Partial Thrombo Time 27.5 sec (23.4-31.7); INR 0.9 Ratio; Prothrombin Time 9.6 sec (9.8-11.6)
--- NOTE | 2018-07-31 21:02 | US ---
EXAM DATE: 07/31/2018 8:58 PM EST AGE/SEX: 68 years / Male INDICATIONS: Left arm pain. CLINICAL DATA: This is the patient's initial encounter. Patient reports that signs and symptoms have been present for 3 days and indicates a pain score of 8/10. MEDICAL/SURGICAL HISTORY: . DVT arm and leg. . Back surgery. COMPARISON: No prior exams available for comparison. FINDINGS: The vessels are compressible and augmentation response is documented. No filling defects a re seen. The flow is phasic with respiration. Other: None. CONCLUSION: 1. The study is negative for upper extremity deep venous thrombosis. Electronically signed by: Uri Alberts MD 07/31/2018 9:00 PM EST
--- NOTE | 2018-07-31 22:17 | CT ---
EXAM DATE: 07/31/2018 10:10 PM EST AGE/SEX: 68 years / Male INDICATIONS: Right chest pain and shortness of breath. CLINICAL DATA: This is the patient's initial encounter. Patient reports that signs and symptoms have been present for 3 days and indicates a pain score of 9/10. MEDICAL/SURGICAL HISTORY: Hypertension. Fusion, cervical. RADIATION DOSE: 19.80 CTDI (mGy) COMPARISON: No prior exams available for comparison. TECHNIQUE: Volumetric scanning was performed using a multi-row detector CT scanner during bolus infu nguyễn of 75 ml Omnipaque 350 (iohexol) nonionic water-soluble contrast as a single exam dose. The katya a was post processed with a variety of visualization algorithms including full volume maximum intensi ty projection and sliding thin slab reformation. Using automated exposure control and adjustment of t he mA and/or kV according to patient size, radiation dose was kept as low as reasonably achievable to obtain optimal diagnostic quality images. DICOM format image data is available electronically for r eview and comparison. FINDINGS: Lungs: Mild emphysematous changes with minimal bibasilar parenchymal changes. Mediastinum: Moderate embolus burden left lower lobe and right lower lobe. Upper lobes are spared. Th ere is no evidence for right heart strain Moderate coronary calcifications No pericardial effusion Small irregular shaped liver with: Anterior to the liver. Moderately thickened gastric antrum. CONCLUSION: 1. Bilateral lower lobe pulmonary emboli. Electronically signed by: Fady Pedro MD 07/31/2018 10:16 PM EST
[2018-07-31] MEDS ORDERED: Heparin Drip 25,000 UNIT/250 ML BAG IV.CONT PRN (22:45)
[2018-07-31] MEDS ORDERED: Heparin 10,000 UNITS/10 ML Vial (for IV use) IV.PUSH STA (22:45)
[2018-07-31] MEDS: Heparin Drip 25,000 UNIT/250 ML BAG IV.CONT PRN (23:35)
[2018-08-01] MEDS: Lisinopril 10 MG Tablet PO SCH (08:18)
[2018-08-01] MEDS: Atenolol 25 MG Tablet PO SCH (08:18)
[2018-08-01] MEDS: hydroCHLOROthiazide 25 MG Tablet PO SCH (08:19)
[2018-08-01 08:39] LABS: Bilirubin,Urine Negative (Negative); Clarity,Urine Clear (Clear); Color,Urine Yellow (Yellw/Straw); Glucose,Urine (UA) Negative (Negative); Leukocyte Esterase,Urine Negative (Negative); Nitrite,Urine Negative (Negative); Urobilinogen,Urine 0.2 mg/dL (Less than 2)
[2018-08-01 08:53] LABS: Mucus,Urine Rare /lpf (Occasional); WBC,Urine 0-5 /hpf (0-5)
[2018-08-01 08:54] LABS: Squamous Epithelial Cell,Urine 0-5 /hpf (0-5)
--- NOTE | 2018-08-01 08:57 | P.HP ---
History of Present Illness Primary Care Physician: Lisa Rand MD Chief Complaint: Right rib pain History of Present Illness: This is a pleasant 68-year-old male patient with a known medical history of hypertension and history of DVTs who presented to the ED with complaints of right rib pain. Patient states that this pain started on , the pain is located in his right rib cage area, is sharp in nature, consistent, and worse especially with movement and breathing. He states that he did take a trip to see his children last weekend, drove roughly three hours and returned home on Tuesday afternoon. He states that he was doing well over the course of the few days and on he developed this said rib pain and worsening shortness of breath. Since that time this pain has been worsening, and he has been increasingly short of breath especially with activity and movement. It should be noted that patient has a history of DVTs, patient has had a right lower extremity DVT postoperatively after a cervical fusion in 2000, as well as a left upper extremity in 2001. At that time he was placed on Coumadin and was on it for roughly a total of 15 years, was discontinued in 2014. Patient does follow closely with his PCP, was last seen 2 weeks ago with no changes to his medicines. Patient denies any recent illness including fever, chills, headache, nausea, vomiting, diarrhea or dysuria. On presentation his d-dimer was elevated , CTA was performed and showing bilateral pulmonary embolism. Patient also presents with leukocytosis, tachycardia. Left upper extremity is negative for DVT. Right lower extremity with presence of DVT in the proximal aspect of the right deep femoral vein. Nonocclusive thrombus is present in portions of the distal right superficial femoral vein. Pulmonology and hematology have been consulted. - Diagnosis (1) Right leg DVT (2) Thrombophlebitis leg (3) Pulmonary emboli Inpatient Certification: I certify that the inpatient services were ordered in accordance with Medicare regulations governing the order. This includes certification that hospital inpatient services are reasonable and necessary and in the case of services not specified as inpatient-only under 42 CFR 419.22(n), that they are appropriately provided as inpatient services in accordance to with the 2-midnight benchmark under 43 CFR 412.3(e) Estimated Total Length of Stay (Days): 2 Plans for Post Hospital Care: Not yet determined Review of Systems All other systems reviewed negative except as stated in HPI [facility] - History History Provided By: Patient - Medical History Medical History: Medical History (Last Reviewed 08/01/18 @ 08:55 by Dorene Acosta) Cervical vertebral fusion Hypertension - Surgical History Surgical History: Surgical History (Last Reviewed 08/01/18 @ 08:55 by Dorene Acosta) History of appendectomy - Family History Family History: Family History (Last Updated 08/01/18 @ 11:42 by Dorene Acosta) Brother Cancer Sister Cardiovascular disease Brother Cardiovascular disease Father Cardiovascular disease - Social History I have reviewed the patient's Social History: Yes - Tobacco History Second Hand Smoke Exposure: No Smoking Status: Never smoker - Alcohol History How Often Do You Have a Drink Containing Alcohol: 2 to 4 times a month - Substance Use History Substance History: No History of Abuse - Travel History Recent Travel in the [place] Within the Last 8 Weeks: Yes Recent Travel Out of the Country Within the Last 8 Weeks: No - Immunization History Tetanus Immunization: Unsure Hx Influenza Vaccine This Season: Yes Medications and Allergies Active Medications: Active Medications Albuterol (Duoneb Neb (Prn)) 1 ampul NEB Q2HR NEB PRN PRN Reason: DYSPNEA Albuterol (Duoneb Neb (Tram)) 1 ampul NEB Q6HR NEB TRAM Atenolol (Tenormin) 25 mg PO DAILY TRAM Last Admin: 08/01/18 08:18 Dose: 25 mg Hydrochlorothiazide (Hydrodiuril) 12.5 mg PO DAILY TRAM Last Admin: 08/01/18 08:19 Dose: 12.5 mg Heparin Sodium/Dextrose (Heparin/D5w 25,000 U/250 Ml) 25,000 unit in 250 mls @ 0 mls/hr IV.CONT TITRATE PRN; Protocol PRN Reason: Per Protocol Last Titration: 08/01/18 07:15 Dose: 1,400 units/hr, 14 mls/hr Lisinopril (Prinivil) [address] [facility] Last Admin: 08/01/18 08:18 Dose: 10 mg Oxycodone HCl (Roxicodone) 5 mg PO Q4H PRN PRN Reason: pain 3 - 10 Last Admin: 08/01/18 08:19 Dose: 5 mg Sodium Chloride (Ns Flush) 2 ml IV.FLUSH UNSCH PRN PRN Reason: FLUSH AFTER USING IV ACCESS Last Admin: 07/31/18 17:16 Dose: 2 ml Allergies Allergy/AdvReac Type Severity Reaction Status Date / Time hydrocodone AdvReac Severe VOMITING Verified 07/31/18 16:21 codeine AdvReac Unknown VOMITING Verified 07/31/18 16:21 Home Medications Medication Instructions Recorded Confirmed Type atenolol 25 mg PO DAILY 04/09/18 07/31/18 History lisinopril-hydrochlorothiazide 1 tab PO DAILY 04/09/18 07/31/18 History Exam Vital signs: Vital Signs 07/31/18 16:18 07/31/18 16:33 07/31/18 17:33 Temperature 99.9 F H Pulse Rate 88 80 Respiratory Rate 20 20 Blood Pressure 152/70 H 131/69 Pulse Oximetry 98 97 96 07/31/18 18:43 07/31/18 20:25 07/31/18 20:27 Temperature Pulse Rate 68 72 Respiratory Rate 18 16 Blood Pressure 116/60 140/66 Pulse Oximetry 98 97 98 08/01/18 00:46 08/01/18 00:51 08/01/18 02:15 Temperature Pulse Rate 78 74 Respiratory Rate 16 Blood Pressure 122/49 L Pulse Oximetry 96 97 08/01/18 02:22 08/01/18 02:31 08/01/18 04:00 Temperature 99.4 F 98.4 F Pulse Rate 86 96 H Respiratory Rate 16 18 Blood Pressure 131/64 144/67 H Pulse Oximetry 95 95 97 08/01/18 07:55 08/01/18 08:00 Temperature 100.5 F H Pulse Rate 80 Respiratory Rate 32 H Blood Pressure 124/64 Pulse Oximetry 95 94 L Intake & Output 07/31/18 08/01/18 08/01/18 18:59 06:59 18:59 Intake Total 0 / 0 Output Total 250 / 250 400 / 400 Balance -250 / -250 -400 / -400 Weight 88.8 kg 85 kg Intake: Oral 0 / 0 Output: Urine 250 / 250 400 / 400 Other: Date of Last Bowel Movement 07/31/18 07/31/18 Weight On Admission 86.2 kg Narrative: GENERAL: Well-developed, well-nourished patient with pain with inspiration, berna to right rib cage. On supplemental O2. SKIN: Warm and dry. No rash. HEAD: Normocephalic. Atraumatic. EYES: Pupils equal and round. No scleral icterus. No injection or drainage. ENT: No nasal bleeding or discharge. Mucous membranes pink and moist. NECK: Supple. Trachea midline. CARDIOVASCULAR: Regular rate and rhythm. S1, S2 noted. No murmur appreciated. RESPIRATORY: Clear breath sounds. Breath sounds equal bilaterally. GASTROINTESTINAL: Abdomen soft, non-tender, nondistended. Normoactive bowel sounds x4. MUSCULOSKELETAL: No obvious deformities. Extremities without clubbing, cyanosis , or edema. RIGHT LOWER EXTREMITY: Positive Homans sign. There is mild thrombophlebitis to easley. NEUROLOGICAL: Awake and alert. No obvious cranial nerve deficits. Motor grossly within normal limits. 5/5 muscle strength in bilateral upper and lower extremities. Normal speech. PSYCHIATRIC: Appropriate mood and affect; insight and judgment normal. Results - Labs CBC & Chem 7: 07/31/18 17:06 07/31/18 17:06 Labs: Laboratory Results - last 24 hr 07/31/18 07/31/18 07/31/18 17:06 17:06 17:06 CBC w Diff Auto diff final WBC 13.6 H RBC 4.91 Hgb 15.5 Hct 46.0 MCV 93.6 MCH 31.6 MCHC 33.8 RDW 12.7 Plt Count 180 MPV 7.4 Neut % (Auto) 78.9 H Lymph % (Auto) 10.0 Mellette % (Auto) 6.7 Eos % (Auto) 0.2 Baso % (Auto) 4.2 H Neut # (Auto) 10.7 H Lymph # (Auto) 1.4 Mellette # (Auto) 0.9 Eos # (Auto) 0.0 Baso # (Auto) 0.6 H WBC Differential . Differential Comment . PT INR APTT D-Dimer Quant (PE/DVT) 4.91 H Sodium 135 L Potassium 4.2 Chloride 99 Carbon Dioxide 28.0 Anion Gap 8 BUN 10 Creatinine 0.90 Estimated GFR 84 L Random Glucose 97 Calcium 8.6 Total Bilirubin 0.9 AST 20 ALT 22 Alkaline Phosphatase 79 Troponin I Less than 0.02 L B-Natriuretic Peptide Total Protein 7.4 Albumin 3.6 Ur Collection Type Urine Color Urine Clarity Urine pH Ur Specific [place] Urine Protein Urine Glucose (UA) Urine Ketones Urine Occult Blood Urine Nitrate Urine Bilirubin Urine Urobilinogen Ur Leukocyte Esterase Urine WBC Ur Squamous Epith Cells Urine Mucus Micro UA Comment Ur Microscopic Review Urine Culture Comments 07/31/18 07/31/18 07/31/18 17:06 17:06 20:17 CBC w Diff WBC RBC Hgb Hct MCV MCH MCHC RDW Plt Count MPV Neut % (Auto) Lymph % (Auto) Mellette % (Auto) Eos % (Auto) Baso % (Auto) Neut # (Auto) Lymph # (Auto) Mellette # (Auto) Eos # (Auto) Baso # (Auto) WBC Differential Differential Comment PT 9.6 L INR 0.9 APTT 27.5 D-Dimer Quant (PE/DVT) Sodium Potassium Chloride Carbon Dioxide Anion Gap BUN Creatinine Estimated GFR Random Glucose Calcium Total Bilirubin AST ALT Alkaline Phosphatase Troponin I Less than 0.02 L B-Natriuretic Peptide 34 Total Protein Albumin Ur Collection Type Urine Color Urine Clarity Urine pH Ur Specific [place] Urine Protein Urine Glucose (UA) Urine Ketones Urine Occult Blood Urine Nitrate Urine Bilirubin Urine Urobilinogen Ur Leukocyte Esterase Urine WBC Ur Squamous Epith Cells Urine Mucus Micro UA Comment Ur Microscopic Review Urine Culture Comments 08/01/18 08/01/18 05:50 08:33 CBC w Diff WBC RBC Hgb Hct MCV MCH MCHC RDW Plt Count MPV Neut % (Auto) Lymph % (Auto) Mellette % (Auto) Eos % (Auto) Baso % (Auto) Neut # (Auto) Lymph # (Auto) Mellette # (Auto) Eos # (Auto) Baso # (Auto) WBC Differential Differential Comment PT INR APTT 78.4 H D D-Dimer Quant (PE/DVT) Sodium Potassium Chloride Carbon Dioxide Anion Gap BUN Creatinine Estimated GFR Random Glucose Calcium Total Bilirubin AST ALT Alkaline Phosphatase Troponin I B-Natriuretic Peptide Total Protein Albumin Ur Collection Type Clean catch Urine Color Yellow Urine Clarity Clear Urine pH 6.0 Ur Specific [place] 1.010 Urine Protein Negative Urine Glucose (UA) Negative Urine Ketones Negative Urine Occult Blood Negative Urine Nitrate Negative Urine Bilirubin Negative Urine Urobilinogen 0.2 Ur Leukocyte Esterase Negative Urine WBC 0-5 Ur Squamous Epith Cells 0-5 Urine Mucus Rare Micro UA Comment Culture not ind Ur Microscopic Review Microscopic reviewed Urine Culture Comments Culture not ind - Imaging Impressions Ribs X-Ray 07/31/18 16:32 CONCLUSION: Negative rib series. No evidence of pneumothorax. Venous Doppler Study 07/31/18 19:56 CONCLUSION: 1. The study is negative for upper extremity deep venous thrombosis. Chest CTA 07/31/18 19:58 CONCLUSION: 1. Bilateral lower lobe pulmonary emboli. Caprini VTE Risk Assessment Caprini VTE Risk Assessment: Moderate/High Risk (score >= 2) Caprini Risk Assessment Model: Point Value = 1 Point Value = 2 Point Value = 3 Point Value = 5 Age 41-60 Minor surgery BMI > 25 kg/m2 Swollen legs Varicose veins or History of unexplained or recurrent spontaneous Oral contraceptives or hormone replacement Sepsis (< 1 month) Serious lung disease, including pneumonia (< 1 month) Abnormal pulmonary function Acute myocardial infarction Congestive heart failure (< 1 month) History of inflammatory bowel disease Medical patient at bed rest Age 61-74 Arthroscopic surgery Major open surgery (> 45 min) Laparoscopic surgery (> 45 min) Malignancy Confined to bed (> 72 hours) Immobilizing plaster cast Central venous access Age >= 75 History of VTE Family history of VTE Factor V Leiden Prothrombin [id number] Lupus anticoagulant Anticardiolipin antibodies Elevated serum homocysteine Heparin-induced thrombocytopenia Other congenital or acquired thrombophilia Stroke (< 1 month) Elective arthroplasty Hip, pelvis, or leg fracture Acute spinal cord injury (< 1 month) Prophylaxis Regimen: Total Risk Factor Score Risk Level Prophylaxis Regimen 0-1 Low Early ambulation 2 Moderate Order ONE of the following: *Sequential Compression Device (SCD) *Heparin 5000 units SQ BID 3-4 Higher Order ONE of the following medications: *Heparin 5000 units SQ TID *Enoxaparin/Lovenox 40 mg SQ daily (WT < 150 kg, CrCl > 30 mL/min) *Enoxaparin/Lovenox 30 mg SQ daily (WT < 150 kg, CrCl > 10-29 mL/min) *Enoxaparin/Lovenox 30 mg SQ BID (WT < 150 kg, CrCl > 30 mL/min) AND/OR *Sequential Compression Device (SCD) 5 or more Highest Order ONE of the following medications: *Heparin 5000 units SQ TID (Preferred with Epidurals) *Enoxaparin/Lovenox 40 mg SQ daily (WT < 150 kg, CrCl > 30 mL/min) *Enoxaparin/Lovenox 30 mg SQ daily (WT < 150 kg, CrCl > 10-29 mL/min) *Enoxaparin/Lovenox 30 mg SQ BID (WT < 150 kg, CrCl > 30 mL/min) AND *Sequential Compression Device (SCD) Assessment and Plan - Assessment (1) Right leg DVT Code(s): I82.401 - Acute embolism and thrombosis of unspecified deep veins of right lower extremity Status: Acute (2) Thrombophlebitis leg Code(s): I80.3 - Phlebitis and thrombophlebitis of lower extremities, unspecified Status: Acute (3) Pulmonary emboli Code(s): I26.99 - Other pulmonary embolism without acute cor pulmonale Status : Acute - Plan This is a 68-year-old male patient: Bilateral lower lobe pulmonary embolism Right lower extremity DVT History of DVT in right lower extremity and left upper extremity -Patient presented with a week history of worsening right sided rib pain and shortness of breath. -Recent travel with 3-hour car ride. No recent surgery. -Does have a history of DVTs in 2000, was on Coumadin for a total of roughly 15 years, has been stopped in 2014. -CTA reviewed showing bilateral lower lobe pulmonary embolism. Right lower extremity US showing presence of DVT. -Pulmonology has been consulted, appreciate input and recommendations. -Continue on heparin drip, monitor aptt. Add hypercoagulable workup. -Coagulable panel ordered. Follow. -Supplemental O2 as needed to keep sats > 92%. Encourage incentive spirometry use. Duonebs as needed. -Pain control with Oxycodone as needed. -Awaiting Echocardiogram to rule out RV strain. -Awaiting hematology evaluation, may possibly need malignancy work up for possible etiology of recurrent DVTs. Defer until evaluated by solid fiber paster operator. -Supportive care. Patient is hemodynamically stable at this time. Continue close monitoring. SIRS Leukocytosis Fever of unknown origin -Patient presented with white blood cells of 13,000, fever of 100.5 overnight and tachycardia. -UA negative. Chest x-ray negative for any acute findings. -Blood cultures ordered and lactic acid pending. -Work this morning. Continue to monitor. Hypertension, chronic: Continue home medications. Monitor BP trends. DVT Prophylaxis: Heparin drip. (3) Pulmonary emboli Qualifiers: Pulmonary embolism type: other Chronicity: acute Acute cor pulmonale presence: without acute cor pulmonale Qualified Code(s): I26.99 - Other pulmonary embolism without acute cor pulmonale
[2018-08-01] MEDS ORDERED: Non-Formulary Drug (Lisinopril-Hydrochlorothiazide [Lisinopril-Hydrochlorothiazide] 1 TAB) PO SCH (09:00)
--- NOTE | 2018-08-01 09:16 | US ---
EXAM DATE: 08/01/2018 9:10 AM EST AGE/SEX: 68 years / Male INDICATIONS: Pulmonary embolism. History of DVT. Cramping in left calf. CLINICAL DATA: This is the patient's subsequent encounter. Patient reports that signs and symptoms h ave been present for 1 day and indicates a pain score of 0/10. MEDICAL/SURGICAL HISTORY: . DVT left arm and right leg. . Back surgery. COMPARISON: No prior exams available for comparison. TECHNIQUE: Venous ultrasound of both lower extremities was performed from the inguinal ligament to t he proximal calf. Real-time, color Doppler and spectral tracing, compression and augmentation techni ques were used. FINDINGS: Right Leg: There is thrombus present in the proximal aspect of the right deep femoral vein. Nonocclu sive thrombus is present in portions of the distal right superficial femoral vein. Left Leg: Normal compression of the deep venous system from the inguinal region to the proximal calf . No echogenic clot is seen. Normal response of the venous system to augmentation and respiration. Other: None. CONCLUSION: Study is positive for DVT in the right leg. Electronically signed by: Rivas Guerra MD 08/01/2018 9:15 AM EST
--- NOTE | 2018-08-01 10:13 | MB ---
cc: Jennie Ewing MD DATE: 08/01/2018 REASON FOR CONSULTATION: Pulmonary embolism. REFERRING PHYSICIAN: Dr. Sánchez. HISTORY OF PRESENT ILLNESS: The patient is a 68-year-old male with a past medical history of hypertension, DVT, pulmonary embolism x2 back in 2000 and 2001. 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 He presented to [facility] with a 5-day history of progressive worsening shortness of breath associated with midsternal chest pain. The patient also reports intermittent cough. He denies any fever, chills or constitutional symptoms. The patient denies any hemoptysis, wheezing, nausea, vomiting or abdominal pain. In addition, he denies any orthopnea, PND, or edema of the lower extremities. He reports intermittent cramp in his left lower extremity. A CT angiogram of the chest was obtained, which showed bilateral lower lobe pulmonary embolism. The patient was subsequently started on heparin drip. He also had a venous Doppler ultrasound upper extremity last night, which was negative for DVT. A Doppler ultrasound of the lower extremity was just obtained and a preliminary reading showed right lower extremity DVT. The patient is currently on 2 liters of oxygen with a saturation of 94%. Current blood pressure is 124/64. The patient denies any family history of thromboembolism. PAST MEDICAL HISTORY: Significant for hypertension, history of PE and DVT, history of cervical vertebral fusion. PAST SURGICAL HISTORY: Previous appendectomy, previous neck surgery. ALLERGIES: CODEINE AND HYDROCODONE. FAMILY HISTORY: Coronary artery disease runs in the family. Brother had cancer diagnosed at age 30. No history of thromboembolism. SOCIAL HISTORY: Nonsmoker, social drinker. MEDICATIONS AT HOME: Include: 1. Atenolol. 2. Lisinopril/hydrochlorothiazide. REVIEW OF SYSTEMS: Unremarkable. PHYSICAL EXAMINATION: GENERAL: A 68-year-old male lying in bed in no acute distress. VITAL SIGNS: Temperature 100.5, pulse 80, respiratory rate 32, blood pressure 124/64, saturation of 94% on 2 liter oxygen. HEENT: Atraumatic, normocephalic. Pupils are equal, round, reactive to light and accommodation. Extraocular muscles intact. Conjunctivae pink. Nonicteric sclerae. Oral mucosa within normal. NECK: Supple. No JVD, adenopathy, or thyromegaly. Trachea midline. CARDIOVASCULAR: Regular rate and rhythm. Normal S1, S2. No murmurs, rubs or gallops noted. PULMONARY: Bilateral equal air entry. No rales or wheezing. ABDOMEN: Soft, nontender, nondistended. Positive bowel sounds. EXTREMITIES: No cyanosis, clubbing, edema. NEUROLOGIC: No focal sensory deficit. LABORATORY DATA: WBC 13.6, hemoglobin 15.5, hematocrit 46, platelet count 180. Sodium 135, potassium 4.2, chloride 99, CO2 28, BUN 10, creatinine 0.90, glucose of 97. Troponin less than 0.02 x2 sets. LFTs within normal. BNP 34. RADIOGRAPHIC STUDIES: CTA of the chest showed bilateral lower lobe pulmonary embolism. Doppler ultrasound upper extremity negative for thrombosis. IMPRESSION: 1. Respiratory insufficiency. 2. Bilateral lower lobe pulmonary embolism. 3. Deep venous thrombosis right lower extremity. 4. History of pulmonary embolism and deep venous thrombosis. 5. Hypertension. 6. Mild hyponatremia. 7. Leukocytosis. RECOMMENDATIONS: 1. Continue with oxygen and maintain saturations above 92%. 2. Bronchodilators in the form of DuoNeb every 6 hours plus every 2 hours p.r.n. for shortness of breath. 3. We will obtain a 2-D echocardiogram to evaluate LV function and to rule out RV strain. 4. Continue with heparin drip and monitor PTT per protocol. 5. CTA of the chest showed bilateral lower lobe pulmonary embolism and Doppler ultrasound of the lower extremity showed DVT in the right leg. 6. We will consult hematology service for recurrent PE and DVT. 7. We will obtain hypercoagulable workup which includes protein C and protein S antigen level, factor V activity, antithrombin 3, and homocysteine level. 8. Continue with antihypertensive medication. 9. Continue other medical management per primary team. Thank you for the consultation and allowing us to participate in this patient's care. MD JUSTIN Shea/rodney , 08:51 AM , 09:01 AM
[2018-08-01 12:40] LABS: Baso # (Auto) 0.1 th/mm3 (0.0-0.2); Baso % (Auto) 0.7 % (0.0-2.0); Eos % (Auto) 0.3 % (0.0-4.0); Hematocrit 45.8 % (39.0-51.0); Hemoglobin 15.2 gm/dL (13.0-17.0); Lymph # (Auto) 1.4 th/mm3 (1.0-4.8); Lymph % (Auto) 10.8 % (9.0-44.0); Mean Corpuscular HGB Conc 33.3 % (32.0-36.0); Mean Corpuscular Hemoglobin 31.7 pg (27.0-34.0); Mean Corpuscular Volume 95.3 fL (80.0-100.0); Mean Platelet Volume 7.9 fL (7.0-11.0); Mono # (Auto) 1.3 th/mm3 (0.0-0.9); Mono % (Auto) 9.5 % (0.0-8.0); Neut # (Auto) 10.6 th/mm3 (1.8-7.7); Neut % (Auto) 78.7 % (16.0-70.0); Platelet Count 193 th/mm3 (150-450); Red Blood Count 4.81 mil/mm3 (4.50-5.90); Red Cell Distribution Width 12.9 % (11.6-17.2); White Blood Count 13.4 th/mm3 (4.0-11.0)
[2018-08-01 12:48] LABS: Potassium 3.7 meq/L (3.5-5.1)
[2018-08-01 12:50] LABS: Calcium 8.6 mg/dL (8.5-10.1); Carbon Dioxide 31.1 meq/L (21.0-32.0)
[2018-08-01] MEDS ORDERED: Morphine Inj 4 MG/ML Vial IV.PUSH ONE (13:13)
[2018-08-01] MEDS ORDERED: Morphine Inj 4 MG/ML Vial IV.PUSH PRN (13:14)
--- NOTE | 2018-08-01 15:34 | ECG ---
Date Performed: 07/31/2018 Time Performed: 21:26:28 PTAGE: 68 years EKG: Sinus rhythm NORMAL ECG PREVIOUS TRACING : 04/09/2018 12.47 Since the previous tracing, no significant change noted DOCTOR: Ambrose Shah Interpretating Date/Time 08/01/2018 15:33:59
[2018-08-01] MEDS: Heparin Drip 25,000 UNIT/250 ML BAG IV.CONT PRN (16:59)
--- NOTE | 2018-08-01 19:20 | ECHRPT ---
Indication: Shyortness of Breath CONCLUSIONS Normal left ventricular size. Wall thickness is measured at the upper limits of normal. The left ventricular systolic function is normal with an estimated ejection fraction in the range of 55-60%. Mild mitral valve regurgitation. There is trace tricuspid valve regurgitation. The estimated pulmonary arterial pressure is 31 mmHg. Estimated RAP 3mmHg. BP: / HR: Rhythm: MEASUREMENTS (Male / Female) Normal Values Technical Quality:Technically difficult study 2D ECHO LV Diastolic Diameter PLAX 4.2 cm 4.2 - 5.9 / 3.9 - 5.3 cm LV Systolic Diameter PLAX 3.2 cm IVS Diastolic Thickness 1.0 cm 0.6 - 1.0 / 0.6 - 0.9 cm LVPW Diastolic Thickness 1.1 cm 0.6 - 1.0 / 0.6 - 0.9 cm LV Relative Wall Thickness 0.5 RV Internal Dim ED PLAX 3.1 cm LVOT Diameter 2.1 cm Aortic Root Diameter 2.6 cm LA Systolic Diameter LX 3.1 cm 3.0 - 4.0 / 2.7 - 3.8 cm DOPPLER AV Peak Velocity 157.0 cm/s AV Peak Gradient 9.9 mmHg LVOT Peak Velocity 98.7 cm/s LVOT Peak Gradient 3.9 mmHg AV Area Cont Eq pk 2.2 cm Mitral E Point Velocity 82.9 cm/s Mitral A Point Velocity 81.9 cm/s Mitral E to A Ratio 1.0 LV E' Lateral Velocity 9.8 cm/s Mitral E to LV E' Lateral Ratio 8.4 LV E' Septal Velocity 9.2 cm/s Mitral E to LV E' Septal Ratio 9.1 TR Peak Velocity 235.0 cm/s TR Peak Gradient 22.1 mmHg Right Atrial Pressure 10.0 mmHg Pulmonary Artery Systolic Pressu 32.1 mmHg Right Ventricular Systolic Press 32.1 mmHg PV Peak Velocity 129.0 cm/s PV Peak Gradient 6.7 mmHg FINDINGS LEFT VENTRICLE Normal left ventricular size. Wall thickness is measured at the upper limits of normal. The left ventricular systolic function is normal with an estimated ejection fraction in the range of 55-60%. RIGHT VENTRICLE Normal right ventricular size and systolic function. LEFT ATRIUM The left atrial size is normal. RIGHT ATRIUM The right atrial size is normal. ATRIAL SEPTUM Normal atrial septal thickness without atrial level shunting by limited color doppler interrogation. AORTA The aortic root and proximal ascending aorta are normal in size on limited imaging. MITRAL VALVE Mild thickening of the mitral valve leaflets. Mild mitral valve regurgitation. AORTIC VALVE Trileaflet aortic valve. No aortic valve stenosis or regurgitation. TRICUSPID VALVE There is trace tricuspid valve regurgitation. The estimated pulmonary arterial pressure is 31 mmHg. PULMONARY VALVE No pulmonary valve regurgitation or stenosis. VESSELS The inferior vena cava is normal in size. There is greater than 50% respiratory change in dimension of the inferior vena cava (normal). Estimated RAP 3mmHg. PERICARDIUM No pericardial effusion. Edilson Drew (Electronically Signed) Final Date:01 August 2018 19:19
--- NOTE | 2018-08-01 21:03 | MB ---
cc: Mar Constantino MD,Jennie Alexis,Yovanny Gallardo MD DATE: 08/01/2018 REFERRING PROVIDER: Jennie Ewing MD CHIEF COMPLAINT: Dr. Ewing requests a consultation for Mr. Taylor regarding recurrent deep vein thromboses and new pulmonary embolism. HISTORY OF PRESENT ILLNESS: Mr. Taylor is a 68-year-old man with a history of recurrent deep vein thromboses. He describes that his first deep vein thrombosis occurred postoperatively after a cervical fusion 2000. He developed subsequently a left upper extremity a year later. He was placed on anticoagulant therapy with Coumadin. He has had no recurrent events while on Coumadin. He denies any problems of bleeding related to Coumadin. He was seen by his primary physician and sent for a consultation regarding his chronic anticoagulant therapy. Ultimately, it was decided to discontinue his anticoagulant therapy in 2014. He was on no prophylaxis at the time. He was doing well until several weeks prior to his presentation. He has been describing cramps in his lower extremities. He has had progressive symptoms from his cramps and now increasing shortness of breath. He drove to visit his children and came back with worsening shortness of breath that prompted him to come to the emergency room. He was seen by Dr. Desmond Carrillo. He was diagnosed with thrombophlebitis of the left leg. Imaging studies included a venous Doppler. There is thrombus present in the proximal aspect of the right deep femoral vein. There is nonocclusive thrombus present in the portion of the distal right superficial femoral vein. The left leg shows normal compression with no echogenic clot. CT angiogram is positive for bilateral moderate embolus burden pulmonary emboli. There are no signs of right heart strain. Echocardiogram performed showed that the estimated pulmonary arterial pressure was 31. His ejection fraction is 55% to 60%. There is trace tricuspid valve regurgitation. The right atrium is normal in size. The right ventricle is normal in size and systolic function. He was started on anticoagulant therapy with unfractionated heparin. His PTT is 60 seconds from this afternoon. He still has some pleuritic-type chest pain. He denies any fevers, chills or night sweats. He denies any precipitating event. He has his 2 children at bedside, who are keeping him company. He has had no nausea, no vomiting, no weight loss. He denies any history of bleeding. PAST MEDICAL HISTORY: Significant for: 1. 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 2. Bilateral pulmonary embolism. 3. Hypertension. PAST SURGICAL HISTORY: 1. Appendectomy. 2. Cervical vertebral fusion. SOCIAL HISTORY: He is a never smoker. He drinks 2-3 drinks per month. He denies any illicit drug use. FAMILY HISTORY: Significant for a father who of pancreatic cancer in his 70s. Mother had significant coronary artery disease and in her 60s. ALLERGIES: HYDROCODONE AND CODEINE. CURRENT MEDICATIONS: Include: 1. DuoNeb. 2. Tenormin. 3. Unfractionated heparin 4. HydroDIURIL. 5. Prinivil. 6. Roxicodone p.r.n. PHYSICAL EXAMINATION: VITAL SIGNS: Temperature 100.4, heart rate 72, respiratory rate 19-28, blood pressure 108/58, saturation 95%. GENERAL: Mr. Taylor is a well-developed, well-nourished man who looks his stated age. HEENT: His pupils are round and reactive to light and accommodation. Oropharynx is clear. NECK: Supple. LUNGS: Clear anteriorly. CARDIOVASCULAR: Reveals normal rate and rhythm. ABDOMEN: Benign. No organomegaly. EXTREMITIES: Lower extremities with chronic venous changes of the right lower extremity. Good pulses. LABORATORY DATA: Significant for mild leukocytosis, predominantly neutrophils. PTT at 60 seconds. Chemistry with BUN of 12, creatinine 1.00, sodium 134. Troponin I is negative. Urinalysis is negative. Antiphospholipid antibody panel is negative. Thrombophilia evaluation including protein C, protein S, antithrombin III, factor V and factor VIII activity levels was done and pending. ASSESSMENT AND PLAN: Mr. Taylor is a 68-year-old man with a history of hypertension and recurrent right lower extremity deep vein thromboses. He has never had a pulmonary embolism before. He has had a history of upper extremity deep vein thromboses. We discussed at length his recurrent venous thromboembolic events that warrant him to continue anticoagulant therapy indefinitely. We discussed the risks and benefits of chronic anticoagulant therapy versus stopping. He is interested in continuing anticoagulation. He needs acute treatment for the acute pulmonary embolism and deep vein thromboses. He is advised to continue his unfractionated heparin. He appears to be stable. I anticipate switching him to low molecular weight heparin at a dose of 1 mg/kg twice daily tomorrow. He is familiar with self injection as he has done so in the past. He is aware of the new oral anticoagulants. He knows that he cannot afford them. He would like to resume his anticoagulant therapy with Coumadin upon discharge. We discussed chronic postphlebitic syndrome. He would benefit from the use of support hose. His fever will be monitored. There are no localizing symptoms. We discussed his slight fever may be related to the pulmonary embolism. We will monitor. The case was discussed with Dr. Alexis. Mr. Taylor's questions were answered to their satisfaction. His children's questions were answered to their satisfaction. He is advised to follow up on an outpatient basis. We could help him obtain a PT/INR home testing machine. MD JUAN PABLO Meier/costa , 08:15 PM , 08:30 PM
[2018-08-02] MEDS: hydroCHLOROthiazide 25 MG Tablet PO SCH (09:18)
[2018-08-02] MEDS: Atenolol 25 MG Tablet PO SCH (09:19)
[2018-08-02] MEDS: Lisinopril 10 MG Tablet PO SCH (09:19)
--- NOTE | 2018-08-02 09:42 | P.PNIM ---
Subjective Interval history: Follow up bilateral pulmonary embolism. Patient seen and examined, sitting on side of bed in [facility]. No acute events overnight. Actually much improved today. Continued on 2 L NC. Pain is well controlled on Morphine. Continued on heparin gtt. Industrial Machine Assembler has seen patient last evening, appreciate recs. Will transition to Coumadin later this afternoon. VSS afebrile. Physical Exam Vital signs: Vital Signs 08/01/18 09:43 08/01/18 12:00 08/01/18 12:38 Temperature 98.0 F Pulse Rate 76 73 76 Respiratory Rate 18 24 Blood Pressure 134/67 Pulse Oximetry 97 94 L 08/01/18 13:00 08/01/18 13:33 08/01/18 16:00 Temperature 100.4 F H Pulse Rate 77 75 67 Respiratory Rate 44 H 28 H 19 Blood Pressure 126/73 107/58 L Pulse Oximetry 97 98 95 08/01/18 19:25 08/01/18 20:00 08/01/18 20:14 Temperature 100.7 F H Pulse Rate 69 76 83 Respiratory Rate 16 21 Blood Pressure 105/50 L Pulse Oximetry 96 95 08/02/18 00:00 08/02/18 00:46 08/02/18 04:00 Temperature 97.7 F 99.0 F Pulse Rate 66 67 70 Respiratory Rate 20 19 Blood Pressure 96/58 L 113/69 Pulse Oximetry 96 96 08/02/18 04:59 08/02/18 07:39 08/02/18 08:00 Temperature 98.7 F Pulse Rate 64 67 83 Respiratory Rate 14 21 Blood Pressure 134/70 Pulse Oximetry 94 L 94 L 08/02/18 09:30 Temperature Pulse Rate Respiratory Rate Blood Pressure Pulse Oximetry 94 L Intake & Output 08/01/18 08/02/18 08/02/18 18:59 06:59 18:59 Intake Total 1210 / 1210 195 / 195 Output Total 800 / 800 400 / 400 Balance 410 / 410 -400 / -400 195 / 195 Weight 86.2 kg Intake: IV 250 / 250 195 / 195 Heparin/D5W 25,000 U/250 mL 25, 250 / 250 195 / 195 000 unit In 250 ml @ Per Protocol IV.CONT TITRATE PRN Rx #:[id number] Oral 960 / 960 Output: Urine 800 / 800 400 / 400 Other: # Voids 6 Date of Last Bowel Movement 07/31/18 07/31/18 07/31/18 # Bowel Movements 0 Narrative: GENERAL: Well-developed, well-nourished patient, nad. On supplemental O2. SKIN: Warm and dry. No rash. HEAD: Normocephalic. Atraumatic. EYES: Pupils equal and round. No scleral icterus. No injection or drainage. ENT: No nasal bleeding or discharge. Mucous membranes pink and moist. NECK: Supple. Trachea midline. CARDIOVASCULAR: Regular rate and rhythm. S1, S2 noted. No murmur appreciated. RESPIRATORY: Clear breath sounds. Breath sounds equal bilaterally. GASTROINTESTINAL: Abdomen soft, non-tender, nondistended. Normoactive bowel sounds x4. MUSCULOSKELETAL: No obvious deformities. Extremities without clubbing, cyanosis , or edema. RIGHT LOWER EXTREMITY: Positive Homans sign. There is mild thrombophlebitis to [place]. NEUROLOGICAL: Awake and alert. No obvious cranial nerve deficits. Motor grossly within normal limits. 5/5 muscle strength in bilateral upper and lower extremities. Normal speech. PSYCHIATRIC: Appropriate mood and affect; insight and judgment normal. Results - Labs CBC & Chem 7: 08/01/18 12:10 08/01/18 12:10 Laboratory Results - last 24 hr 08/01/18 08/01/18 08/01/18 12:10 12:10 12:10 CBC w Diff Auto diff final WBC 13.4 H RBC 4.81 Hgb 15.2 Hct 45.8 MCV 95.3 MCH 31.7 MCHC 33.3 RDW 12.9 Plt Count 193 MPV 7.9 Neut % (Auto) 78.7 H Lymph % (Auto) 10.8 [place] % (Auto) 9.5 H Eos % (Auto) 0.3 Baso % (Auto) 0.7 Neut # (Auto) 10.6 H Lymph # (Auto) 1.4 [place] # (Auto) 1.3 H Eos # (Auto) 0.0 Baso # (Auto) 0.1 WBC Differential . Differential Comment . APTT 58.8 H D Sodium 134 L Potassium 3.7 Chloride 96 L Carbon Dioxide 31.1 Anion Gap 7 BUN 12 Creatinine 1.00 Estimated GFR 75 L Random Glucose 111 H Lactic Acid Calcium 8.6 08/01/18 08/01/18 08/02/18 12:10 18:17 04:50 CBC w Diff WBC RBC Hgb Hct MCV MCH MCHC RDW Plt Count MPV Neut % (Auto) Lymph % (Auto) [place] % (Auto) Eos % (Auto) Baso % (Auto) Neut # (Auto) Lymph # (Auto) [place] # (Auto) Eos # (Auto) Baso # (Auto) WBC Differential Differential Comment APTT 60.1 H 52.5 H Sodium Potassium Chloride Carbon Dioxide Anion Gap BUN Creatinine Estimated GFR Random Glucose Lactic Acid 1.5 Calcium Assessment and Plan - Assessment (1) Right leg DVT Code(s): I82.401 - Acute embolism and thrombosis of unspecified deep veins of right lower extremity Status: Acute (2) Thrombophlebitis leg Code(s): I80.3 - Phlebitis and thrombophlebitis of lower extremities, unspecified Status: Acute (3) Pulmonary emboli Code(s): I26.99 - Other pulmonary embolism without acute cor pulmonale Status : Acute - Plan This is a 68-year-old male patient: Bilateral lower lobe pulmonary embolism Right lower extremity DVT History of DVT in right lower extremity and left upper extremity -Patient presented with a week history of worsening right sided rib pain and shortness of breath. -Recent travel with 3-hour car ride. No recent surgery. -Does have a history of DVTs in 2000, was on Coumadin for a total of roughly 15 years, has been stopped in 2014. -CTA reviewed showing bilateral lower lobe pulmonary embolism. Right lower extremity US showing presence of DVT. -Pulmonology has been consulted, appreciate input and recommendations. -Continue on heparin drip, monitor aptt. Follow hypercoagulable workup. -Supplemental O2 as needed to keep sats > 92%. Requiring 2 L NC. Encourage incentive spirometry use. Duonebs as needed. -Pain control with Oxycodone as needed. -Echocardiogram reviewed, no right heart strain. EF adequate. -Industrial Machine Assembler consulted and has seen patient, appreciate input and recommendations. -Supportive care. Patient is hemodynamically stable at this time. Continue close monitoring. SIRS Leukocytosis Fever of unknown origin -Patient presented with white blood cells of 13,000, fever of 100.7 overnight and tachycardia. Tachycardia improved. -UA negative. Chest x-ray negative for any acute findings. -Blood cultures ordered and lactic acid within normal. -Continue to monitor. Hypertension, chronic: Continue home medications. Monitor BP trends. DVT Prophylaxis: Heparin drip. Discharge Planning: Awaiting clinical improvement. (3) Pulmonary emboli Qualifiers: Pulmonary embolism type: other Chronicity: acute Acute cor pulmonale presence: without acute cor pulmonale Qualified Code(s): I26.99 - Other pulmonary embolism without acute cor pulmonale
[2018-08-02] MEDS ORDERED: Sod Chloride 0.9% Inj 1,000 ML IV.CONT SCH (10:30)
[2018-08-02] MEDS: Heparin Drip 25,000 UNIT/250 ML BAG IV.CONT PRN (11:08)
--- NOTE | 2018-08-02 12:01 | P.DCO ---
- Diagnosis (1) Thrombophlebitis leg Status: Acute (2) Pulmonary emboli Status: Acute (3) Right leg DVT Status: Acute - Physical Therapy Order: Evaluate and treat, Improve ambulation, Strength and gait training - Home Health Nursing Order: Signs/symptoms of disease process, Medication education-adverse effect, Nursing assessment with vital signs - Case Management Consult Case Management Consult-Home Health: Yes - Certification I have seen patient Yovanny Taylor on 08/02/18. My clinical findings support the need for the requested home health care services because: Patient has SOB I certify that my clinical findings support that this patient is homebound because: Unsteady gait/balance (2) Pulmonary emboli Qualifiers: Pulmonary embolism type: other Chronicity: acute Acute cor pulmonale presence: without acute cor pulmonale Qualified Code(s): I26.99 - Other pulmonary embolism without acute cor pulmonale
--- NOTE | 2018-08-02 12:41 | ECG ---
Date Performed: 08/01/2018 Time Performed: 13:23:36 PTAGE: 68 years EKG: Sinus rhythm NORMAL ECG PREVIOUS TRACING : 07/31/2018 21.26 DOCTOR: Westley Bruner Interpretating Date/Time 08/02/2018 12:40:17
--- NOTE | 2018-08-02 13:28 | P.PNPL ---
Subjective Interval history: Patient is lying in bed in NAD. On 2L oxygen. Afebrile. Remains on Heparin drip. Physical Exam Vital signs: Vital Signs 08/01/18 13:33 08/01/18 16:00 08/01/18 19:25 Temperature 100.4 F H Pulse Rate 75 67 69 Respiratory Rate 28 H 19 16 Blood Pressure 107/58 L Pulse Oximetry 98 95 96 08/01/18 20:00 08/01/18 20:14 08/02/18 00:00 Temperature 100.7 F H 97.7 F Pulse Rate 76 83 66 Respiratory Rate 21 20 Blood Pressure 105/50 L 96/58 L Pulse Oximetry 95 96 08/02/18 00:46 08/02/18 04:00 08/02/18 04:59 Temperature 99.0 F Pulse Rate 67 70 64 Respiratory Rate 19 Blood Pressure 113/69 Pulse Oximetry 96 08/02/18 07:39 08/02/18 08:00 08/02/18 09:30 Temperature 98.7 F Pulse Rate 67 84 Respiratory Rate 14 21 Blood Pressure 134/70 Pulse Oximetry 94 L 94 L 94 L 08/02/18 12:00 Temperature 98.3 F Pulse Rate 67 Respiratory Rate 19 Blood Pressure 115/61 Pulse Oximetry 96 Intake & Output 08/01/18 08/02/18 08/02/18 18:59 06:59 18:59 Intake Total 1210 / 1210 250 / 250 Output Total 800 / 800 400 / 400 Balance 410 / 410 -400 / -400 250 / 250 Weight 86.2 kg Intake: IV 250 / 250 250 / 250 Heparin/D5W 25,000 U/250 mL 25, 250 / 250 250 / 250 000 unit In 250 ml @ Per Protocol IV.CONT TITRATE PRN Rx #:[id number] Oral 960 / 960 Output: Urine 800 / 800 400 / 400 Other: # Voids 6 Date of Last Bowel Movement 07/31/18 07/31/18 07/31/18 # Bowel Movements 0 - Constitutional no acute distress, average body habitus - Routine HEENT Exam Head: Present: normocephalic, atraumatic Eye: Present: EOMI, PERRL, normal accommodation, conjunctivae pink ENT: Present: mucous membranes moist - Routine Neck Exam Present: supple, full ROM, trachea midline - Routine Respiratory Exam Present: CTA bilaterally - Routine Cardiovascular Exam Present: RRR, S1, S2 - Routine Abdominal Exam Present: soft, normoactive bowel sounds - Routine Extremities Exam Present: pulses intact - Routine Skin Exam Present: intact - Routine Neurological Exam Present: alert, oriented X3, CN II-XII intact - Routine Psychiatric Exam Present: normal affect Assessment and Plan - Plan 1. Respiratory insufficiency. 2. B/l lower lobe pulmonary embolism. 3. DVT RLE 4. History of pulmonary embolism and deep venous thrombosis. 5. Hypertension. 6. Mild hyponatremia. 7. Leukocytosis. Plan Continue with oxygen and maintain sats> 92%. Bronchodilators Echo showed EF 55-60%, normal RV size/function Continue with heparin drip and monitor PTT per protocol. Might be switching to Lovenox 1mg/kg SQ BID per [facility] and Coumadin upon discharge. [facility] is following- Dr. Constantino Follow up on hypercoagulable panel. Continue treatment plan.
[2018-08-02] MEDS: Enoxaparin Inj 80 MG/0.8 ML Syringe SQ SCH ×2 (14:50→20:44)
--- NOTE | 2018-08-02 16:28 | MH ---
cc: Vladimir Abbasi MD DATE OF ADMISSION: 07/31/2018 SUBJECTIVE: Mr. Taylor is seen in room 312 for followup. He continues to do well and is continuing on heparin. His is at the bedside, and he does not have any nosebleeds, gum bleeds, blood in his stool or black stools. He feels very well and has no new complaints. PHYSICAL EXAMINATION: GENERAL: Very well appearing, in no apparent distress. VITAL SIGNS: Stable. He is afebrile. No pallor or icterus. No bleeding or bruising from the gums, oral or nasal mucous membranes. SKIN: Without petechia, ecchymosis or bruises. The rest of the physical examination not performed today. Reviewed his labs and his medications. He continues on heparin and is being switched to Coumadin at this time. His platelets are normal at 193 with a white count of 13.4 and hemoglobin 15.2. IMPRESSION: Recurrent deep venous thrombosis in a male with no obvious triggering factor and hence, he will be on indefinite anticoagulation, irrespective of what of hypercoagulable workup is done or not done. If his white count remains elevated for a long time, he will need a workup for a myeloproliferative disorder, which can also cause recurrent deep venous thromboses. For now, the patient will be switched over to Coumadin and will be discharged home with a PT/INR home testing machine as recommended by Dr. Constantino, and Mr. Taylor is very willing to follow up with Dr. Constantino upon discharge. This was discussed with the patient and his . MD LAWANDA Cagle/costa , 04:01 PM , 04:08 PM
[2018-08-02] MEDS: Acetaminophen 325 MG Tablet PO PRN (17:36)
[2018-08-02] MEDS: levoFLOXacin 750 MG Tablet PO SCH (17:37)
[2018-08-02] MEDS ORDERED: Warfarin Consult Pharmacy OTHER PRN (17:56)
--- NOTE | 2018-08-02 18:40 | XR ---
EXAM DATE: 08/02/2018 6:32 PM EST AGE/SEX: 68 years / Male INDICATIONS: Short of breath. Known bilateral lower lobe pulmonary emboli seen on CT as well as emph ysema CLINICAL DATA: This is the patient's subsequent encounter. Patient reports that signs and symptoms h ave been present for 2 days and indicates a pain score of 0/10. MEDICAL/SURGICAL HISTORY: Hypertension. Fusion, cervical. COMPARISON: [facility], RIBS RIGHT MIN 3V W EXP CHEST, 07/31/2018. . FINDINGS: A single AP portable semierect view of the chest was obtained. This demonstrates mild streaky opacity at the right lung base. The right costophrenic angle appears mildly blunted. The heart size remains at the upper limits of normal. The left lung is clear. The bony thorax is intact in appearance. CONCLUSION: 1. Mild streaky opacity at the right lung base. 2. The right costophrenic angle appears mildly blunted which could indicate a small effusion. Electronically signed by: Tyler Ulloa MD 08/02/2018 6:39 PM EST
[2018-08-03] MEDS: Acetaminophen 325 MG Tablet PO PRN (04:04)
[2018-08-03 07:02] LABS: Activated Partial Thrombo Time 37.2 sec (23.4-31.7); INR 1.1 Ratio; Prothrombin Time 10.8 sec (9.8-11.6)
[2018-08-03 07:03] LABS: Potassium 3.8 meq/L (3.5-5.1)
[2018-08-03 07:05] LABS: Calcium 7.8 mg/dL (8.5-10.1)
[2018-08-03 07:06] LABS: Baso % (Auto) 0.5 % (0.0-2.0); Carbon Dioxide 27.5 meq/L (21.0-32.0); Eos % (Auto) 0.5 % (0.0-4.0); Hematocrit 38.9 % (39.0-51.0); Lymph % (Auto) 9.9 % (9.0-44.0); Mean Corpuscular HGB Conc 33.3 % (32.0-36.0); Mean Corpuscular Hemoglobin 31.4 pg (27.0-34.0); Mean Corpuscular Volume 94.4 fL (80.0-100.0); Mono # (Auto) 0.9 th/mm3 (0.0-0.9); Mono % (Auto) 9.3 % (0.0-8.0); Neut # (Auto) 7.9 th/mm3 (1.8-7.7); Neut % (Auto) 79.8 % (16.0-70.0); Platelet Count 198 th/mm3 (150-450); Red Blood Count 4.12 mil/mm3 (4.50-5.90); Red Cell Distribution Width 13.1 % (11.6-17.2); White Blood Count 9.8 th/mm3 (4.0-11.0)
[2018-08-03] MEDS: hydroCHLOROthiazide 25 MG Tablet PO SCH (08:57)
[2018-08-03] MEDS: Lisinopril 10 MG Tablet PO SCH (08:58)
[2018-08-03] MEDS: levoFLOXacin 750 MG Tablet PO SCH (08:59)
[2018-08-03] MEDS: Atenolol 25 MG Tablet PO SCH (08:59)
[2018-08-03] MEDS: Enoxaparin Inj 80 MG/0.8 ML Syringe SQ SCH ×2 (08:59→21:53)
--- NOTE | 2018-08-03 10:02 | P.PNIM ---
Subjective Interval history: Follow up pneumonia and PE. Patient seen and examined, lying in bed on RA. Comfortable. Pain is well controlled. Improving everyday. Worked with PT today, has ambulated in the halls. Mild low grade fever overnight. Physical Exam Vital signs: Vital Signs 08/02/18 12:00 08/02/18 14:58 08/02/18 16:00 Temperature 98.3 F 101.2 F H Pulse Rate 72 66 75 Respiratory Rate 19 16 20 Blood Pressure 115/61 96/57 L Pulse Oximetry 96 94 L 08/02/18 17:40 08/02/18 19:42 08/02/18 20:00 Temperature 99.7 F H 100.5 F H Pulse Rate 67 85 Respiratory Rate 16 20 Blood Pressure 95/56 L Pulse Oximetry 94 L 93 L 08/03/18 00:00 08/03/18 00:50 08/03/18 04:00 Temperature 99.6 F 100.3 F H Pulse Rate 72 75 71 Respiratory Rate 18 20 Blood Pressure 108/53 L 121/64 Pulse Oximetry 93 L 93 L 08/03/18 05:00 08/03/18 07:27 08/03/18 08:24 Temperature 97.1 F L Pulse Rate 71 68 Respiratory Rate 20 18 17 Blood Pressure 111/61 Pulse Oximetry 94 L Intake & Output 08/02/18 08/03/18 08/03/18 18:59 06:59 18:59 Intake Total 420.8 / 420.8 240 / 240 Output Total 400 / 400 Balance 420.8 / 420.8 -160 / -160 Weight 86.4 kg Intake: IV 300.8 / 300.8 Heparin/D5W 25,000 U/250 mL 25, 300.8 / 300.8 000 unit In 250 ml @ Per Protocol IV.CONT TITRATE PRN Rx #:[id number] Oral 120 / 120 240 / 240 Output: Urine 400 / 400 Other: Date of Last Bowel Movement 07/31/18 07/31/18 Narrative: GENERAL: Well-developed, well-nourished patient, nad. SKIN: Warm and dry. No rash. HEAD: Normocephalic. Atraumatic. EYES: Pupils equal and round. No scleral icterus. No injection or drainage. ENT: No nasal bleeding or discharge. Mucous membranes pink and moist. NECK: Supple. Trachea midline. CARDIOVASCULAR: Regular rate and rhythm. S1, S2 noted. No murmur appreciated. RESPIRATORY: Rhonchi in lower lungs. Breath sounds equal bilaterally. GASTROINTESTINAL: Abdomen soft, non-tender, nondistended. Normoactive bowel sounds x4. MUSCULOSKELETAL: No obvious deformities. Extremities without clubbing, cyanosis , or edema. RIGHT LOWER EXTREMITY: There is mild thrombophlebitis to [place], improving. NEUROLOGICAL: Awake and alert. No obvious cranial nerve deficits. Motor grossly within normal limits. 5/5 muscle strength in bilateral upper and lower extremities. Normal speech. PSYCHIATRIC: Appropriate mood and affect; insight and judgment normal. Results - Labs CBC & Chem 7: 08/03/18 06:35 08/03/18 06:35 Laboratory Results - last 24 hr 08/02/18 08/03/18 08/03/18 15:16 06:35 06:35 CBC w Diff WBC RBC Hgb Hct MCV MCH MCHC RDW Plt Count MPV Neut % (Auto) Lymph % (Auto) [place] % (Auto) Eos % (Auto) Baso % (Auto) Neut # (Auto) Lymph # (Auto) [place] # (Auto) Eos # (Auto) Baso # (Auto) WBC Differential Differential Comment PT 10.0 10.8 INR 1.0 1.1 APTT 37.2 H D Sodium 136 Potassium 3.8 Chloride 100 Carbon Dioxide 27.5 Anion Gap 9 BUN 19 H Creatinine 0.94 Estimated GFR 80 L Random Glucose 109 H Calcium 7.8 L D 08/03/18 06:35 CBC w Diff Auto diff final WBC 9.8 RBC 4.12 L Hgb 13.0 D Hct 38.9 L MCV 94.4 MCH 31.4 MCHC 33.3 RDW 13.1 Plt Count 198 MPV 8.0 Neut % (Auto) 79.8 H Lymph % (Auto) 9.9 [place] % (Auto) 9.3 H Eos % (Auto) 0.5 Baso % (Auto) 0.5 Neut # (Auto) 7.9 H Lymph # (Auto) 1.0 [place] # (Auto) 0.9 Eos # (Auto) 0.0 Baso # (Auto) 0.0 WBC Differential . Differential Comment . PT INR APTT Sodium Potassium Chloride Carbon Dioxide Anion Gap BUN Creatinine Estimated GFR Random Glucose Calcium Microbiology 08/01/18 12:00 Blood - Peripheral Aerobic Blood Culture - Preliminary No growth in 1 day 08/01/18 12:00 Blood - Peripheral Anaerobic Blood Culture - Preliminary No growth in 1 day 08/01/18 12:10 Blood - Peripheral Aerobic Blood Culture - Preliminary No growth in 1 day 08/01/18 12:10 Blood - Peripheral Anaerobic Blood Culture - Preliminary No growth in 1 day - Imaging Impressions Chest X-Ray 08/02/18 00:00 CONCLUSION: 1. Mild streaky opacity at the right lung base. 2. The right costophrenic angle appears mildly blunted which could indicate a small effusion. 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 -Recent travel with 3-hour car ride. No recent surgery. -Does have a history of DVTs in 2000, was on Coumadin for a total of roughly 15 years, has been stopped in 2014. -CTA reviewed showing bilateral lower lobe pulmonary embolism. Right lower extremity US showing presence of DVT. -Pulmonology has been consulted, appreciate input and recommendations. -Was on heparin drip. Follow hypercoagulable workup. Started on Coumadin and Lovenox. Follow INR. -Supplemental O2 as needed to keep sats > 92%. On RA. Encourage incentive spirometry use. Duonebs as needed. -Pain control with Oxycodone as needed. -Echocardiogram reviewed, no right heart strain. EF adequate. -Lance Crewmember/Mlrs Sergeant consulted and has seen patient, appreciate input and recommendations. -Supportive care. Patient is hemodynamically stable at this time. Continue close monitoring. Right sided pneumonia Leukocytosis -Patient presented with white blood cells of 13,000 initially, now decreased, fever of 100.5 overnight and tachycardia. Tachycardia improved. -UA negative. Chest x-ray showing right sided pneumonia. -Blood cultures negative and lactic acid within normal. -Continue to monitor. -IS. Deep breathing and coughing. -Encouraged ambulation. -Continue Levaquin Hypertension, chronic: Continue home medications. Monitor BP trends. DVT Prophylaxis: Coumadin. Discharge Planning: Awaiting clinical improvement. (2) Pulmonary emboli Qualifiers: Pulmonary embolism type: other Chronicity: acute Acute cor pulmonale presence: without acute cor pulmonale Qualified Code(s): I26.99 - Other pulmonary embolism without acute cor pulmonale
--- NOTE | 2018-08-03 15:01 | P.PNPL ---
Subjective Interval history: Patient is lying in bed in NAD. T:100.3. Off heparin drip. Physical Exam Vital signs: Vital Signs 08/02/18 14:58 08/02/18 16:00 08/02/18 17:40 Temperature 101.2 F H 99.7 F H Pulse Rate 66 75 Respiratory Rate 16 20 Blood Pressure 96/57 L Pulse Oximetry 94 L 08/02/18 19:42 08/02/18 20:00 08/03/18 00:00 Temperature 100.5 F H Pulse Rate 67 85 72 Respiratory Rate 16 20 Blood Pressure 95/56 L Pulse Oximetry 94 L 93 L 08/03/18 00:50 08/03/18 04:00 08/03/18 05:00 Temperature 99.6 F 100.3 F H Pulse Rate 75 71 Respiratory Rate 18 20 20 Blood Pressure 108/53 L 121/64 Pulse Oximetry 93 L 93 L 08/03/18 07:27 08/03/18 08:24 08/03/18 11:07 Temperature 97.1 F L 99.5 F Pulse Rate 71 68 75 Respiratory Rate 18 17 17 Blood Pressure 111/61 116/59 L Pulse Oximetry 94 L 94 L 08/03/18 12:51 Temperature Pulse Rate Respiratory Rate 12 Blood Pressure Pulse Oximetry Intake & Output 08/02/18 08/03/18 08/03/18 18:59 06:59 18:59 Intake Total 420.8 / 420.8 240 / 240 Output Total 400 / 400 Balance 420.8 / 420.8 -160 / -160 Weight 86.4 kg Intake: IV 300.8 / 300.8 Heparin/D5W 25,000 U/250 mL 25, 300.8 / 300.8 000 unit In 250 ml @ Per Protocol IV.CONT TITRATE PRN Rx #:[id number] Oral 120 / 120 240 / 240 Output: Urine 400 / 400 Other: Date of Last Bowel Movement 07/31/18 07/31/18 - Constitutional no acute distress - Routine HEENT Exam Head: Present: normocephalic, atraumatic Eye: Present: EOMI, PERRL, normal accommodation, conjunctivae pink ENT: Present: mucous membranes moist - Routine Neck Exam Present: supple, full ROM, trachea midline - Routine Respiratory Exam Present: CTA bilaterally - Routine Cardiovascular Exam Present: RRR, S1, S2 - Routine Abdominal Exam Present: soft, normoactive bowel sounds - Routine Extremities Exam Present: full ROM, pulses intact - Routine Skin Exam Present: intact - Routine Neurological Exam Present: alert, oriented X3, CN II-XII intact Assessment and Plan - Plan 1. Respiratory insufficiency. 2. B/l lower lobe pulmonary embolism. 3. DVT RLE 4. History of pulmonary embolism and deep venous thrombosis. 5. Hypertension. 6. Mild hyponatremia. 7. Leukocytosis. Plan Continue with oxygen and maintain sats> 92%. Bronchodilators, check CXR Echo showed EF 55-60%, normal RV size/function Continue abx (Levaquin) monitor for signs of infections ( fever, WBC) Check sputum cx, BC from 08/01: NGTD Off Heparin drip now on Lovenox 80mg BID and Coumadin. Monitor PT/INR. d/c Lovenox once INR>2.0 Heme is following- Dr. Constantino Follow up on hypercoagulable panel. Continue treatment plan.
--- NOTE | 2018-08-03 18:33 | P.PNONC ---
Subjective Interval history: Resting comfortably in bed. No bleeding. Objective Vital Signs/Intake & Output: Vital Signs 08/02/18 19:42 08/02/18 20:00 08/03/18 00:00 Temperature 100.5 F H Pulse Rate 67 85 72 Respiratory Rate 16 20 Blood Pressure 95/56 L Pulse Oximetry 94 L 93 L 08/03/18 00:50 08/03/18 04:00 08/03/18 05:00 Temperature 99.6 F 100.3 F H Pulse Rate 75 71 Respiratory Rate 18 20 20 Blood Pressure 108/53 L 121/64 Pulse Oximetry 93 L 93 L 08/03/18 07:27 08/03/18 08:24 08/03/18 11:07 Temperature 97.1 F L 99.5 F Pulse Rate 71 68 75 Respiratory Rate 18 17 17 Blood Pressure 111/61 116/59 L Pulse Oximetry 94 L 94 L 08/03/18 12:51 08/03/18 17:18 Temperature 100.4 F H Pulse Rate 81 Respiratory Rate 12 18 Blood Pressure 116/74 Pulse Oximetry 93 L Intake & Output 08/02/18 08/03/18 08/03/18 18:59 06:59 18:59 Intake Total 420.8 / 420.8 240 / 240 1000 / 1000 Output Total 400 / 400 Balance 420.8 / 420.8 -160 / -160 1000 / 1000 Weight 86.4 kg Intake: IV 300.8 / 300.8 Heparin/D5W 25,000 U/250 mL 25, 300.8 / 300.8 000 unit In 250 ml @ Per Protocol IV.CONT TITRATE PRN Rx #:[id number] Oral 120 / 120 240 / 240 1000 / 1000 Output: Urine 400 / 400 Other: # Voids 2 Date of Last Bowel Movement 07/31/18 07/31/18 Result Diagrams: 08/03/18 06:35 08/03/18 06:35 Laboratory Results: Laboratory Results - last 24 hr 08/01/18 08/01/18 08/01/18 12:10 12:10 12:10 CBC w Diff WBC RBC Hgb Hct MCV MCH MCHC RDW Plt Count MPV Neut % (Auto) Lymph % (Auto) [place] % (Auto) Eos % (Auto) Baso % (Auto) Neut # (Auto) Lymph # (Auto) [place] # (Auto) Eos # (Auto) Baso # (Auto) WBC Differential Differential Comment PT INR APTT Sodium Potassium Chloride Carbon Dioxide Anion Gap BUN Creatinine Estimated GFR Random Glucose Calcium Homocysteine Cardiovas 10.4 Anti-Phospholipid Intrp Anti-Cardiolipin IgG Ab <9.4 Anti-Cardiolipin IgM Ab <9.4 08/03/18 08/03/18 08/03/18 06:35 06:35 06:35 CBC w Diff Auto diff final WBC 9.8 RBC 4.12 L Hgb 13.0 D Hct 38.9 L MCV 94.4 MCH 31.4 MCHC 33.3 RDW 13.1 Plt Count 198 MPV 8.0 Neut % (Auto) 79.8 H Lymph % (Auto) 9.9 [place] % (Auto) 9.3 H Eos % (Auto) 0.5 Baso % (Auto) 0.5 Neut # (Auto) 7.9 H Lymph # (Auto) 1.0 [place] # (Auto) 0.9 Eos # (Auto) 0.0 Baso # (Auto) 0.0 WBC Differential . Differential Comment . PT 10.8 INR 1.1 APTT 37.2 H D Sodium 136 Potassium 3.8 Chloride 100 Carbon Dioxide 27.5 Anion Gap 9 BUN 19 H Creatinine 0.94 Estimated GFR 80 L Random Glucose 109 H Calcium 7.8 L D Homocysteine Cardiovas Anti-Phospholipid Intrp Anti-Cardiolipin IgG Ab Anti-Cardiolipin IgM Ab Culture Results: Microbiology 08/01/18 12:00 Aerobic Blood Culture - Preliminary Blood - Peripheral No growth in 2 days Anaerobic Blood Culture - Preliminary No growth in 2 days 08/01/18 12:10 Aerobic Blood Culture - Preliminary Blood - Peripheral No growth in 2 days Anaerobic Blood Culture - Preliminary No growth in 2 days Imaging Studies: Impressions Chest X-Ray 08/02/18 00:00 CONCLUSION: 1. Mild streaky opacity at the right lung base. 2. The right costophrenic angle appears mildly blunted which could indicate a small effusion. Medications: Active Medications Generic Name Dose Route Start Last Admin Trade Name Freq PRN Reason Stop Dose Admin Acetaminophen 650 mg 08/02/18 16:40 08/03/18 04:04 Tylenol PO 650 mg Q4H PRN Administration HEADACHE OR TEMP > 101 F Albuterol 1 ampul 08/01/18 14:00 08/03/18 13:36 Duoneb Neb ([facility]) NEB 1 ampul Q6HR WHILE AWAKE NEB PARISA Administration Atenolol 25 mg 08/01/18 09:00 08/03/18 08:59 Tenormin PO 25 mg DAILY PARISA Administration Enoxaparin Sodium 80 mg 08/02/18 13:45 08/03/18 08:59 Lovenox Inj SQ 80 mg Q12HR PARISA Administration Hydrochlorothiazide 12.5 mg 08/01/18 09:00 08/03/18 08:57 Hydrodiuril PO 12.5 mg DAILY [facility] Administration Levofloxacin 750 mg 08/02/18 16:45 08/03/18 08:59 Levaquin PO 750 mg DAILY [facility] Administration Lisinopril 10 mg 08/01/18 09:00 08/03/18 08:58 Prinivil PO 10 mg DAILY [facility] Administration Morphine Sulfate 2 mg 08/01/18 13:14 08/02/18 09:34 Morphine Inj IV.PUSH 2 mg Q4H PRN Administration BREAKTHROUGH PAIN Oxycodone HCl 5 mg 08/01/18 02:37 08/03/18 11:33 Roxicodone PO 5 mg Q4H PRN Administration pain 3 - 10 Sodium Chloride 2 ml 07/31/18 16:32 07/31/18 17:16 Ns Flush IV.FLUSH 2 ml UNSCH PRN Administration FLUSH AFTER USING IV ACCESS Objective Remarks: GENERAL: Well-nourished, well-developed patient. EYES: No scleral icterus. No injection or drainage. RESPIRATORY: No accessory muscle use. GASTROINTESTINAL: Abdomen soft, non-tender, nondistended. EXTREMITIES: No cyanosis, or edema. MUSCULOSKELETAL: Adequate muscle tone. NEUROLOGICAL: No obvious focal deficit. Awake, alert, and oriented x3. PSYCHIATRIC: Appropriate mood and affect; insight and judgment normal. Assessment/Plan - Plan 1. VTE: will need to be on anticoagulation indefinitely. Lovenox bridge to warfarin. Labs reviewed, no bleeding.
--- NOTE | 2018-08-04 04:27 | XR ---
EXAM DATE: 08/04/2018 4:07 AM EST AGE/SEX: 68 years / Male INDICATIONS: Shortness of breath, cough. CLINICAL DATA: This is the patient's subsequent encounter. Patient reports that signs and symptoms h ave been present for 4 - 6 days and indicates a pain score of 0/10. MEDICAL/SURGICAL HISTORY: Hypertension. Fusion, cervical. COMPARISON: [facility], CHEST 1V SINGLE AP, 08/02/2018. . FINDINGS: 2 portable AP views of the chest demonstrate a normal-sized cardiac silhouette. EKG lines overlie the patient. Lungs are underinflated with mild bibasilar opacity. No pleural effusion or pneumothorax is identified. Bones demonstrate no acute finding. Cervical spine hardware is present. CONCLUSION: Underinflated examination with mild bibasilar opacity, possibly representing atelectasis. There is mi ldly improved aeration of the lung bases. Electronically signed by: Rivas Domínguez MD 08/04/2018 4:25 AM EST
[2018-08-04 06:18] LABS: INR 1.1 Ratio; Prothrombin Time 10.7 sec (9.8-11.6)
[2018-08-04] MEDS: Atenolol 25 MG Tablet PO SCH (08:59)
[2018-08-04] MEDS: Lisinopril 10 MG Tablet PO SCH (09:02)
[2018-08-04] MEDS: hydroCHLOROthiazide 25 MG Tablet PO SCH (09:04)
[2018-08-04] MEDS: Enoxaparin Inj 80 MG/0.8 ML Syringe SQ SCH ×2 (09:04→21:18)
[2018-08-04] MEDS: levoFLOXacin 750 MG Tablet PO SCH (09:05)
--- NOTE | 2018-08-04 09:57 | P.DS ---
Date of admission: 07/31/18 23:37 Primary care physician: Lisa Rand MD Anticipated date of discharge: 08/05/18 Brief History from admission: This is a pleasant 68-year-old male patient with a known medical history of hypertension and history of DVTs who presented to the ED with complaints of right rib pain. Patient states that this pain started on , the pain is located in his right rib cage area, is sharp in nature, consistent, and worse especially with movement and breathing. He states that he did take a trip to see his children last weekend, drove roughly three hours and returned home on Tuesday afternoon. He states that he was doing well over the course of the few days and on he developed this said rib pain and worsening shortness of breath. Since that time this pain has been worsening, and he has been increasingly short of breath especially with activity and movement. It should be noted that patient has a history of DVTs, patient has had a right lower extremity DVT postoperatively after a cervical fusion in 2000, as well as a left upper extremity in 2001. At that time he was placed on Coumadin and was on it for roughly a total of 15 years, was discontinued in 2014. Patient does follow closely with his PCP, was last seen 2 weeks ago with no changes to his medicines. Patient denies any recent illness including fever, chills, headache, nausea, vomiting, diarrhea or dysuria. On presentation his d-dimer was elevated , CTA was performed and showing bilateral pulmonary embolism. Patient also presents with leukocytosis, tachycardia. Left upper extremity is negative for DVT. Right lower extremity with presence of DVT in the proximal aspect of the right deep femoral vein. Nonocclusive thrombus is present in portions of the distal right superficial femoral vein. Pulmonology and hematology have been consulted. DS: Diagnosis - Discharge Diagnosis (1) Thrombophlebitis leg Status: Acute (2) Pulmonary emboli Status: Acute (3) Right leg DVT Status: Acute DS: Medications - Discharge Medications Prescriptions: enoxaparin [Lovenox] 80 mg SUBCUT Q12HR 7 Days ml levofloxacin 750 mg PO DAILY 5 Days #5 tab oxycodone 5 mg PO Q6H PRN #10 tab PRN Reason: pain 3 - 10 warfarin [Coumadin] 5 mg PO DAILY 30 Days #30 tab DS: Summary Hospital Course: This is a 68-year-old male patient with bilateral lower lobe pulmonary embolism and right lower extremity DVT. Does have a history of DVT in right lower extremity and left upper extremity. Patient presented with a week history of worsening right sided rib pain and shortness of breath. Recent travel with 3- hour car ride. No recent surgery. Does have a history of DVTs in 2000, was on Coumadin for a total of roughly 15 years, has been stopped in 2014. CTA reviewed showing bilateral lower lobe pulmonary embolism. Right lower extremity US showing presence of DVT. Pulmonology has been consulted, appreciate input and recommendations. Was on heparin drip. Follow hypercoagulable workup. Started on Coumadin and Lovenox. Follow INR. Still subtherapeutic. Supplemental O2 as needed to keep sats > 92%. On RA. Encourage incentive spirometry use. Duonebs as needed. Pain control with Oxycodone as needed. Echocardiogram reviewed, no right heart strain. EF adequate. Finishing Room Operator consulted and has seen patient, appreciate input and recommendations. Supportive care. Patient is hemodynamically stable at this time. Continue close monitoring. Also had right sided pneumonia and leukocytosis. Patient presented with white blood cells of 13 ,000 initially, now decreased, fever of 99.9 overnight and tachycardia. Tachycardia improved. UA negative. Chest x-ray showing right sided pneumonia. Blood cultures negative and lactic acid within normal. Encouraged ambulation. Continue Levaquin, finish course on DC. Patient stable at this time and agreeable to the plan. DC home. Follow up PCP and import and export clerk. Lovenox Bridge to Coumadin. Stop Lovenox if INR >2. RX as written. Activity as tolerated. Diet as tolerated. Coumadin diet. - Time Spent with Patient Total time spent providing and/or coordinating discharge services: Greater than 30 minutes - Quality: VTE Deep Vein Thrombosis/Pulmonary Embolism Present on Admission: Yes Exam Vital signs: Vital Signs 08/03/18 11:07 08/03/18 12:51 08/03/18 17:18 Temperature 99.5 F 100.4 F H Pulse Rate 75 81 Respiratory Rate 17 12 18 Blood Pressure 116/59 L 116/74 Pulse Oximetry 94 L 93 L 08/03/18 19:38 08/03/18 20:00 08/04/18 00:00 Temperature 100.4 F H 99.9 F H Pulse Rate 81 79 78 Respiratory Rate 18 20 22 Blood Pressure 114/55 L 102/51 L Pulse Oximetry 94 L 95 93 L 08/04/18 04:00 08/04/18 07:26 08/04/18 07:49 Temperature 98.6 F 98.3 F Pulse Rate 78 73 Respiratory Rate 20 17 Blood Pressure 122/66 112/69 Pulse Oximetry 92 L 95 93 L 08/04/18 08:00 Temperature 98.0 F Pulse Rate 92 H Respiratory Rate 17 Blood Pressure 110/60 Pulse Oximetry 93 L Intake & Output 08/03/18 08/04/18 08/04/18 18:59 06:59 18:59 Intake Total 1000 / 1000 360 / 360 Balance 1000 / 1000 360 / 360 Weight 86.3 kg Intake: Oral 1000 / 1000 360 / 360 Other: # Voids 2 2 Date of Last Bowel Movement 07/31/18 Narrative: GENERAL: Well-developed, well-nourished patient, nad. SKIN: Warm and dry. No rash. HEAD: Normocephalic. Atraumatic. EYES: Pupils equal and round. No scleral icterus. No injection or drainage. ENT: No nasal bleeding or discharge. Mucous membranes pink and moist. NECK: Supple. Trachea midline. CARDIOVASCULAR: Regular rate and rhythm. S1, S2 noted. No murmur appreciated. RESPIRATORY: Rhonchi in lower lungs. Breath sounds equal bilaterally. GASTROINTESTINAL: Abdomen soft, non-tender, nondistended. Normoactive bowel sounds x4. MUSCULOSKELETAL: No obvious deformities. Extremities without clubbing, cyanosis , or edema. NEUROLOGICAL: Awake and alert. No obvious cranial nerve deficits. Motor grossly within normal limits. 5/5 muscle strength in bilateral upper and lower extremities. Normal speech. PSYCHIATRIC: Appropriate mood and affect; insight and judgment normal. Results Procedures completed during hospitalization: See above. Labs on day of discharge: Labs from last 24 hours 08/04/18 08/01/18 08/01/18 05:35 12:10 12:10 PT 10.7 INR 1.1 Antithrombin III Activ Factor V Homocysteine Cardiovas Anti-Phospholipid Intrp Anti-Cardiolipin IgG Ab <9.4 Anti-Cardiolipin IgM Ab <9.4 08/01/18 08/01/18 08/01/18 12:10 12:10 12:10 PT INR Antithrombin III Activ 80 Factor V 130.0 Homocysteine Cardiovas 10.4 Anti-Phospholipid Intrp Anti-Cardiolipin IgG Ab Anti-Cardiolipin IgM Ab Preliminary micro results at discharge 08/01/18 12:00 Aerobic Blood Culture - Preliminary Blood - Peripheral No growth in 2 days Anaerobic Blood Culture - Preliminary No growth in 2 days 08/01/18 12:10 Aerobic Blood Culture - Preliminary Blood - Peripheral No growth in 2 days Anaerobic Blood Culture - Preliminary No growth in 2 days - Impressions ITS Impressions Ribs X-Ray 07/31/18 16:32 CONCLUSION: Negative rib series. No evidence of pneumothorax. Chest CTA 07/31/18 19:58 CONCLUSION: 1. Bilateral lower lobe pulmonary emboli. Venous Doppler Study 08/01/18 00:00 CONCLUSION: Study is positive for DVT in the right leg. Chest X-Ray 08/04/18 00:00 CONCLUSION: Underinflated examination with mild bibasilar opacity, possibly representing atelectasis. There is mildly improved aeration of the lung bases. Discharge Plan - Discharge Disposition Patient Disposition: /Home Health Service - Discharge Condition Condition: Stable - Discharge Order Discharge Orders: Discharge Order (Routine); Ordered 08/05/18 Ordered By: Dorene Acosta - Discharge Details Anticipated Discharge Date: 08/05/18 Discharge Comment: [facility] nursing to check INR tomorrow AM. IF INR >2 STOP LOVENOX. - Physicians Team Primary Care Provider: Lisa Rand Attending Provider: Yovanny Alexis Other Providers: Jennie Ewing MD ; Mar Constantino MD ; [place], Insurance
--- NOTE | 2018-08-04 13:52 | P.PNPL ---
Subjective Interval history: Patient is lying in bed in NAD. Afebrile. Physical Exam Vital signs: Vital Signs 08/03/18 17:18 08/03/18 19:38 08/03/18 20:00 Temperature 100.4 F H 100.4 F H Pulse Rate 81 81 79 Respiratory Rate 18 18 20 Blood Pressure 116/74 114/55 L Pulse Oximetry 93 L 94 L 95 08/04/18 00:00 08/04/18 04:00 08/04/18 07:26 Temperature 99.9 F H 98.6 F Pulse Rate 78 78 Respiratory Rate 22 20 Blood Pressure 102/51 L 122/66 Pulse Oximetry 93 L 92 L 95 08/04/18 07:49 08/04/18 08:00 08/04/18 11:32 Temperature 98.3 F 98.0 F 98.8 F Pulse Rate 73 92 H 73 Respiratory Rate 17 17 17 Blood Pressure 112/69 110/60 105/65 Pulse Oximetry 93 L 93 L 95 Intake & Output 08/03/18 08/04/18 08/04/18 18:59 06:59 18:59 Intake Total 1000 / 1000 360 / 360 Balance 1000 / 1000 360 / 360 Weight 86.3 kg Intake: Oral 1000 / 1000 360 / 360 Other: # Voids 2 2 Date of Last Bowel Movement 07/31/18 - Constitutional no acute distress - Routine HEENT Exam Head: Present: normocephalic, atraumatic Eye: Present: EOMI, PERRL, normal accommodation ENT: Present: mucous membranes moist - Routine Neck Exam Present: supple, full ROM, trachea midline - Routine Respiratory Exam Present: CTA bilaterally - Routine Cardiovascular Exam Present: RRR, S1, S2 - Routine Abdominal Exam Present: soft, normoactive bowel sounds - Routine Extremities Exam Present: full ROM, pulses intact - Routine Skin Exam Present: intact - Routine Neurological Exam Present: alert, oriented X3, CN II-XII intact Assessment and Plan - Plan 1. Respiratory insufficiency. 2. B/l lower lobe pulmonary embolism. 3. DVT RLE 4. History of pulmonary embolism and deep venous thrombosis. 5. Hypertension. 6. Mild hyponatremia. 7. Leukocytosis. Plan Continue with oxygen and maintain sats> 92%. Bronchodilators, CXR today: mild bibasilar opacity, possibly representing atelectasis. Improved aeration of the lung bases. Echo showed EF 55-60%, normal RV size/function Continue abx (Levaquin) monitor for signs of infections ( fever, WBC) BC from 08/01: NGTD on Lovenox 80mg BID and Coumadin. Monitor PT/INR. INR 1.1 today Heme is following- Dr. Constantino Follow up on hypercoagulable panel. For possible discharge today
--- NOTE | 2018-08-04 15:56 | P.PNIM ---
Subjective Interval history: Follow up bilateral PE and pneumonia. Patient seen and examined, lying in bed comfortably in nad. On RA. Much improved. Ambulating well with PT. Took a shower today. Eating and drinking well. Pain is well controlled. INR still subtherapeutic, continued on Lovenox bridge. Physical Exam Vital signs: Vital Signs 08/03/18 17:18 08/03/18 19:38 08/03/18 20:00 Temperature 100.4 F H 100.4 F H Pulse Rate 81 81 79 Respiratory Rate 18 18 20 Blood Pressure 116/74 114/55 L Pulse Oximetry 93 L 94 L 95 08/04/18 00:00 08/04/18 04:00 08/04/18 07:26 Temperature 99.9 F H 98.6 F Pulse Rate 78 78 Respiratory Rate 22 20 Blood Pressure 102/51 L 122/66 Pulse Oximetry 93 L 92 L 95 08/04/18 07:49 08/04/18 08:00 08/04/18 11:32 Temperature 98.3 F 98.0 F 98.8 F Pulse Rate 73 92 H 73 Respiratory Rate 17 17 17 Blood Pressure 112/69 110/60 105/65 Pulse Oximetry 93 L 93 L 95 08/04/18 15:03 Temperature Pulse Rate 69 Respiratory Rate 18 Blood Pressure Pulse Oximetry Intake & Output 08/03/18 08/04/18 08/04/18 18:59 06:59 18:59 Intake Total 1000 / 1000 360 / 360 Balance 1000 / 1000 360 / 360 Weight 86.3 kg Intake: Oral 1000 / 1000 360 / 360 Other: # Voids 2 2 Date of Last Bowel Movement 07/31/18 Narrative: GENERAL: Well-developed, well-nourished patient, [facility]. SKIN: Warm and dry. No rash. HEAD: Normocephalic. Atraumatic. EYES: Pupils equal and round. No scleral icterus. No injection or drainage. ENT: No nasal bleeding or discharge. Mucous membranes pink and moist. NECK: Supple. Trachea midline. CARDIOVASCULAR: Regular rate and rhythm. S1, S2 noted. No murmur appreciated. RESPIRATORY: Rhonchi in lower lungs. Breath sounds equal bilaterally. GASTROINTESTINAL: Abdomen soft, non-tender, nondistended. Normoactive bowel sounds x4. MUSCULOSKELETAL: No obvious deformities. Extremities without clubbing, cyanosis , or edema. RIGHT LOWER EXTREMITY: There is mild thrombophlebitis to [place], improving. NEUROLOGICAL: Awake and alert. No obvious cranial nerve deficits. Motor grossly within normal limits. 5/5 muscle strength in bilateral upper and lower extremities. Normal speech. PSYCHIATRIC: Appropriate mood and affect; insight and judgment normal. Results - Labs CBC & Chem 7: 08/03/18 06:35 08/03/18 06:35 Laboratory Results - last 24 hr 08/01/18 08/01/18 08/01/18 12:10 12:10 12:10 PT INR Antithrombin III Activ 80 Factor V 130.0 Homocysteine Cardiovas 10.4 Beta-2-GPI IgG Ab Beta-2-GPI IgA Ab Beta-2-GPI IgM Ab Phosphatidylserine IgG Phosphatidylserine IgA Phosphatidylserine IgM Anti-Phospholipid Intrp Anti-Cardiolipin IgG Ab Anti-Cardiolipin IgA Ab Anti-Cardiolipin IgM Ab 08/01/18 08/01/18 08/04/18 12:10 12:10 05:35 PT 10.7 INR 1.1 Antithrombin III Activ Factor V Homocysteine Cardiovas Beta-2-GPI IgG Ab Less than 9.0 Beta-2-GPI IgA Ab Less than 9.0 Beta-2-GPI IgM Ab Less than 9.0 Phosphatidylserine IgG Less than 10.0 Phosphatidylserine IgA Less than 20.0 Phosphatidylserine IgM Less than 25.0 Anti-Phospholipid Intrp Anti-Cardiolipin IgG Ab Less than 14.0 <9.4 Anti-Cardiolipin IgA Ab Less than 11.0 Anti-Cardiolipin IgM Ab Less than 12.0 <9.4 Microbiology 08/01/18 12:00 Blood - Peripheral Aerobic Blood Culture - Preliminary No growth in 3 days 08/01/18 12:00 Blood - Peripheral Anaerobic Blood Culture - Preliminary No growth in 3 days 08/01/18 12:10 Blood - Peripheral Aerobic Blood Culture - Preliminary No growth in 3 days 08/01/18 12:10 Blood - Peripheral Anaerobic Blood Culture - Preliminary No growth in 3 days - Imaging Impressions Chest X-Ray 08/04/18 00:00 CONCLUSION: Underinflated examination with mild bibasilar opacity, possibly representing atelectasis. There is mildly improved aeration of the lung bases. 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 -Recent travel with 3-hour car ride. No recent surgery. -Does have a history of DVTs in 2000, was on Coumadin for a total of roughly 15 years, has been stopped in 2014. -CTA reviewed showing bilateral lower lobe pulmonary embolism. Right lower extremity US showing presence of DVT. -Pulmonology has been consulted, appreciate input and recommendations. -Was on heparin drip. Follow hypercoagulable workup. Started on Coumadin and Lovenox. Follow INR. Still subtherapeutic. -Supplemental O2 as needed to keep sats > 92%. On RA. Encourage incentive spirometry use. Duonebs as needed. -Pain control with Oxycodone as needed. -Echocardiogram reviewed, no right heart strain. EF adequate. -Sales Associate Fishing consulted and has seen patient, appreciate input and recommendations. -Supportive care. Patient is hemodynamically stable at this time. Continue close monitoring. Right sided pneumonia Leukocytosis -Patient presented with white blood cells of 13,000 initially, now decreased, fever of 99.9 overnight and tachycardia. Tachycardia improved. -UA negative. Chest x-ray showing right sided pneumonia. -Blood cultures negative and lactic acid within normal. -Continue to monitor. -IS. Deep breathing and coughing. -Encouraged ambulation. -Continue Levaquin Hypertension, chronic: Continue home medications. Monitor BP trends. DVT Prophylaxis: Coumadin. Discharge Planning: Awaiting for therapeutic INR. (2) Pulmonary emboli Qualifiers: Pulmonary embolism type: other Chronicity: acute Acute cor pulmonale presence: without acute cor pulmonale Qualified Code(s): I26.99 - Other pulmonary embolism without acute cor pulmonale
[2018-08-05 00:25] VITALS: PULSE 74
[2018-08-05] MEDS: levoFLOXacin 750 MG Tablet PO SCH (08:14)
[2018-08-05] MEDS: Enoxaparin Inj 80 MG/0.8 ML Syringe SQ SCH (08:14)
[2018-08-05] MEDS: hydroCHLOROthiazide 25 MG Tablet PO SCH (08:15)
[2018-08-05] MEDS: Lisinopril 10 MG Tablet PO SCH (08:16)
[2018-08-05] MEDS: Atenolol 25 MG Tablet PO SCH (08:17)
[2018-08-05 08:18] VITALS: RESP 20
[2018-08-05 08:32] VITALS: BP 126/67; TEMP 96.3; O2SAT 92
[2018-08-05 09:02] LABS: INR 1.8 Ratio; Prothrombin Time 18.2 sec (9.8-11.6)
--- NOTE | 2018-08-05 09:14 | P.PNIM ---
Subjective Interval history: Follow up bilateral PE and pneumonia. Patient seen and examined, sitting on side of bed comfortably. Much improved. INR 1.8 today. Will DC home. All symptoms improved. Physical Exam Vital signs: Vital Signs 08/04/18 11:32 08/04/18 15:03 08/04/18 19:38 Temperature 98.8 F Pulse Rate 73 69 74 Respiratory Rate 17 18 18 Blood Pressure 105/65 Pulse Oximetry 95 94 L 08/04/18 20:00 08/05/18 00:00 08/05/18 08:00 Temperature 99.2 F 98.6 F 96.3 F L Pulse Rate 76 74 77 Respiratory Rate 20 19 18 Blood Pressure 115/58 L 115/58 L 126/67 Pulse Oximetry 92 L 93 L 92 L 08/05/18 08:17 Temperature Pulse Rate 74 Respiratory Rate 20 Blood Pressure Pulse Oximetry Intake & Output 08/04/18 08/05/18 08/05/18 18:59 06:59 18:59 Intake Total 240 / 240 240 / 240 Balance 240 / 240 240 / 240 Weight 83 kg Intake: Oral 240 / 240 240 / 240 Other: # Voids 2 Narrative: GENERAL: Well-developed, well-nourished patient, [facility]. SKIN: Warm and dry. No rash. HEAD: Normocephalic. Atraumatic. EYES: Pupils equal and round. No scleral icterus. No injection or drainage. ENT: No nasal bleeding or discharge. Mucous membranes pink and moist. NECK: Supple. Trachea midline. CARDIOVASCULAR: Regular rate and rhythm. S1, S2 noted. No murmur appreciated. RESPIRATORY: Rhonchi in lower lungs. Breath sounds equal bilaterally. GASTROINTESTINAL: Abdomen soft, non-tender, nondistended. Normoactive bowel sounds x4. MUSCULOSKELETAL: No obvious deformities. Extremities without clubbing, cyanosis , or edema. NEUROLOGICAL: Awake and alert. No obvious cranial nerve deficits. Motor grossly within normal limits. 5/5 muscle strength in bilateral upper and lower extremities. Normal speech. PSYCHIATRIC: Appropriate mood and affect; insight and judgment normal. Results - Labs CBC & Chem 7: 08/03/18 06:35 08/03/18 06:35 Laboratory Results - last 24 hr 08/01/18 08/01/18 08/05/18 12:10 12:10 07:46 PT 18.2 H INR 1.8 Factor VIII Activity 86 Beta-2-GPI IgG Ab Less than 9.0 Beta-2-GPI IgA Ab Less than 9.0 Beta-2-GPI IgM Ab Less than 9.0 Phosphatidylserine IgG Less than 10.0 Phosphatidylserine IgA Less than 20.0 Phosphatidylserine IgM Less than 25.0 Anti-Cardiolipin IgG Ab Less than 14.0 Anti-Cardiolipin IgA Ab Less than 11.0 Anti-Cardiolipin IgM Ab Less than 12.0 Microbiology 08/01/18 12:00 Blood - Peripheral Aerobic Blood Culture - Preliminary No growth in 3 days 08/01/18 12:00 Blood - Peripheral Anaerobic Blood Culture - Preliminary No growth in 3 days 08/01/18 12:10 Blood - Peripheral Aerobic Blood Culture - Preliminary No growth in 3 days 08/01/18 12:10 Blood - Peripheral Anaerobic Blood Culture - Preliminary No growth in 3 days Assessment and Plan - Assessment (1) Thrombophlebitis leg Code(s): I80.3 - Phlebitis and thrombophlebitis of lower extremities, unspecified Status: Acute (2) Pulmonary emboli Code(s): I26.99 - Other pulmonary embolism without acute cor pulmonale Status : Acute (3) Right leg DVT Code(s): I82.401 - Acute embolism and thrombosis of unspecified deep veins of right lower extremity Status: Acute - Plan This is a 68-year-old male patient: Bilateral lower lobe pulmonary embolism Right lower extremity DVT History of DVT in right lower extremity and left upper extremity -Patient presented with a week history of worsening right sided rib pain and shortness of breath. -Recent travel with 3-hour car ride. No recent surgery. -Does have a history of DVTs in 2001, was on Coumadin for a total of roughly 15 years, has been stopped in 2014. -CTA reviewed showing bilateral lower lobe pulmonary embolism. Right lower extremity US showing presence of DVT. -Pulmonology has been consulted, appreciate input and recommendations. -Was on heparin drip. Follow hypercoagulable workup. Started on Coumadin and Lovenox. INR 1.8. Will dc home with Lovenox bridge and Coumadin. -Supplemental O2 as needed to keep sats > 92%. On RA. Encourage incentive spirometry use. Duonebs as needed. -Pain control with Oxycodone as needed. -Echocardiogram reviewed, no right heart strain. EF adequate. -Septic Cleaner consulted and has seen patient, appreciate input and recommendations. -Supportive care. Patient is hemodynamically stable at this time. Right sided pneumonia Leukocytosis. Resolved. -Patient presented with white blood cells of 13,000 initially, now decreased, fever of 99.9 overnight and tachycardia. Tachycardia improved. -UA negative. Chest x-ray showing right sided pneumonia. -Blood cultures negative and lactic acid within normal. -Continue to monitor. -IS. Deep breathing and coughing. -Encouraged ambulation. -Continue Levaquin Hypertension, chronic: Continue home medications. Monitor BP trends. DVT Prophylaxis: Coumadin. Discharge Planning: Dc home. Follow up PCP and separator inserter. Will DC on Lovenox bridge and Coumadin. Spoke to CM who has arranged [facility] to arrive tomorrow morning to check INR. IF INR > 2 PATIENT ADVISED TO NOT TAKE HIS LOVENOX TOMORROW. Continued on Coumadin 5 mg PO daily. RX as written. Activity as tolerated. Diet as tolerated. Educated on Coumadin diet. (2) Pulmonary emboli Qualifiers: Pulmonary embolism type: other Chronicity: acute Acute cor pulmonale presence: without acute cor pulmonale Qualified Code(s): I26.99 - Other pulmonary embolism without acute cor pulmonale
== END 2018-08-05 11:21 | disposition home health service (06) ==
LOC: PHED 16:09 → PHEDA 23:37 → PH3 08-01 01:29
PROVIDERS: ADMIT Internal Medicine; ATTEND Internal Medicine